=== PATIENT | male | born 1965 | race Caucasian/White ===

== ENCOUNTER → 2016-11-08 | Outpatient (CLI) | payer BC ==
[2016-11-08 19:24] LABS: ALBUMIN 3.8 GM/DL (3.2-5.2); ALBUMIN/GLOBULIN RATIO 1.23 (1.00-1.93); ALKALINE PHOSPHATASE 42 U/L (45-117); ALT/SGPT 49 U/L (12-78); ANION GAP 8 MEQ/L (8-16); AST/SGOT 17 U/L (15-37); BILIRUBIN,TOTAL 0.8 MG/DL (0.2-1.0); BLOOD UREA NITROGEN 19 MG/DL (7-18); CALCIUM LEVEL 8.4 MG/DL (8.5-10.1); CARBON DIOXIDE LEVEL 28 MEQ/L (21-32); CHLORIDE LEVEL 105 MEQ/L (98-107); CHOLESTEROL LEVEL 179 MG/DL (<200); GLOMERULAR FILTRATION RATE > 60.0 (>60); GLUCOSE, FASTING 110 MG/DL (70-105); POTASSIUM SERUM 4.5 MEQ/L (3.5-5.1); SODIUM LEVEL 141 MEQ/L (136-145); TOTAL PROTEIN 6.9 GM/DL (6.4-8.2); TRIGLYCERIDES LEVEL 195 MG/DL (<150)
[2016-11-08 19:33] LABS: MEAN CORPUSCULAR HEMOGLOBIN 31.4 pg (27.0-33.0); MEAN CORPUSCULAR HGB CONC 33.3 g/dl (32.0-36.5); MEAN CORPUSCULAR VOLUME 94.2 fl (80.0-96.0); RED CELL DISTRIBUTION WIDTH 13.5 % (11.5-14.5); WHITE BLOOD COUNT 4.6 K/mm3 (4.0-10.0)
== END ==
LOC: M WUC 14:29
PROVIDERS: ATTEND Nurse Practitioner Family
DX: K21.9 Gastro-esophageal reflux disease without esophagitis (principal); E78.5 Hyperlipidemia, unspecified

== ENCOUNTER 2016-11-18 18:10 | Emergency (ER) | payer OTHER, BC ==
[2016-11-18] MEDS ORDERED: PERCOCET 5MG/325MG TAB As Ordered ONE (19:16)
[2016-11-18] MEDS ORDERED: OXYCODONE/APAP 5MG/325MG(BULK) 1 TAB TAB As Ordered ONE (19:51)
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
--- NOTE | 2016-11-19 10:25 | REP ---
Clinical: Trauma. Technique: Axial noncontrast images from the thoracic inlet to the upper abdomen with coronal and sagittal re-formations. Findings: The bilateral lung coelho are well-aerated, symmetric, and clear. No pulmonary parenchymal consolidation/contusion, nodule or mass lesion is appreciated. No pleural effusion or pneumothorax. Tracheobronchial tree is patent. Mediastinum demonstrates normal heart/pericardium, thoracic aorta and pulmonary vasculature. No pericardial effusion identified. No obvious adenopathy. Surrounding musculoskeletal structures appear intact without evidence for acute trauma/injury. Limited evaluation of the upper abdomen demonstrates normal bilateral adrenal glands. Impression: Normal noncontrast chest CT. No evidence for acute trauma. No evidence for acute mediastinal or pleuroparenchymal process. Signed by Erickson Schmidt MD 11/19/2016 10:16 A
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
== END 2016-11-18 19:59 | disposition home or self-care (01) ==
LOC: M ED 18:10
DX: S00.81XA Abrasion of other part of head, initial encounter (principal); S20.219A Contusion of unspecified front wall of thorax, initial encounter; V43.52XA Car driver injured in collision with other type car in traffic accident, initial encounter; Y92.410 Unspecified street and highway as the place of occurrence of the external cause; F41.9 Anxiety disorder, unspecified; F32.9 Major depressive disorder, single episode, unspecified; E78.00 Pure hypercholesterolemia, unspecified; Z79.899 Other long term (current) drug therapy; Z88.5 Allergy status to narcotic agent

== ENCOUNTER → 2017-02-07 | Outpatient (CLI) | payer BC ==
[2017-02-07 12:09] LABS: MEAN CORPUSCULAR HEMOGLOBIN 31.6 pg (27.0-33.0); MEAN CORPUSCULAR HGB CONC 33.2 g/dl (32.0-36.5); MEAN CORPUSCULAR VOLUME 95.2 fl (80.0-96.0); RED CELL DISTRIBUTION WIDTH 12.8 % (11.5-14.5)
[2017-02-07 13:01] LABS: ALBUMIN 3.8 GM/DL (3.2-5.2); ALBUMIN/GLOBULIN RATIO 1.27 (1.00-1.93); ALKALINE PHOSPHATASE 45 U/L (45-117); ALT/SGPT 48 U/L (12-78); ANION GAP 7 MEQ/L (8-16); AST/SGOT 21 U/L (15-37); BILIRUBIN,TOTAL 0.8 MG/DL (0.2-1.0); BLOOD UREA NITROGEN 16 MG/DL (7-18); CALCIUM LEVEL 8.9 MG/DL (8.5-10.1); CARBON DIOXIDE LEVEL 29 MEQ/L (21-32); CHLORIDE LEVEL 103 MEQ/L (98-107); CHOLESTEROL LEVEL 176 MG/DL (<200); CREATININE FOR GFR 0.91 MG/DL (0.70-1.30); GLOMERULAR FILTRATION RATE > 60.0 (>60); GLUCOSE, FASTING 114 MG/DL (70-105); POTASSIUM SERUM 4.2 MEQ/L (3.5-5.1); SODIUM LEVEL 139 MEQ/L (136-145); TOTAL PROTEIN 6.8 GM/DL (6.4-8.2); TRIGLYCERIDES LEVEL 184 MG/DL (<150)
== END ==
LOC: M WUC 10:36
PROVIDERS: ATTEND Nurse Practitioner Family
DX: E78.00 Pure hypercholesterolemia, unspecified (principal); K21.9 Gastro-esophageal reflux disease without esophagitis

== ENCOUNTER → 2017-05-26 | Outpatient (CLI) | payer BC ==
[~2017-05-26] MED LIST: ALPR0.25 PO; ASPI1TAB PO; ATOR80TA59 PO; FISH1000 PO; IBUP-1022 PO; NIACCAP PO; NORT10CA2 PO; OMEP40CA2 PO; PROBCAP4 PO
== END ==
LOC: M LAB 16:24
PROVIDERS: ATTEND Internal Medicine Gastroenterology
DX: R19.7 Diarrhea, unspecified (principal); K52.89 Other specified noninfective gastroenteritis and colitis

== ENCOUNTER → 2017-06-01 | Outpatient (CLI) | payer BC | LOC: M WUC 08:21 | PROVIDERS: ATTEND Nurse Practitioner Family | DX: R73.9 Hyperglycemia, unspecified (principal) ==

== ENCOUNTER 2017-06-21 11:58 | Outpatient (CLI) | payer BC ==
[~2017-06-21] VITALS: Ht 175.3 cm; Wt 89.8 kg
[2017-06-21] MEDS ORDERED: NS 1,000 ML IV ONE (12:00)
[2017-06-21] MEDS ORDERED: PROPOFOL 200 MG/20 ML VIAL As Ordered ONE ×2 (12:29→14:57)
[2017-06-21] MEDS ORDERED: LIDOCAINE 2% INJ 100 MG/5 ML SDV (FOR ANES.) As Ordered ONE (12:29)
--- NOTE | 2017-06-21 15:10 | ROOR ---
Patient Name: Herbert Baez Procedure Date: 06/21/2017 2:26 PM Date of : 1965 Age: 51 Room: [facility] Gender: Male Note Status: Finalized Procedure: Upper GI endoscopy Indications: Functional Dyspepsia, Suspected esophageal reflux Providers: Pro Crane MD Referring MD: CHAS ELLIS MD Requesting Provider: Medicines: Monitored Anesthesia Care Complications: No immediate complications. Procedure: Pre-Anesthesia Assessment: - Prior to the procedure, a History and Physical was performed, and patient medications and allergies were reviewed. The patient is competent. The risks and benefits of the procedure and the sedation options and risks were discussed with the patient. All questions were answered and informed consent was obtained. Patient identification and proposed procedure were verified by the physician, the nurse and the service station attendant in the procedure room. Mental Status Examination: normal. Airway Examination: normal oropharyngeal airway and neck mobility. Respiratory Examination: clear to auscultation. CV Examination: normal. Prophylactic Antibiotics: The patient does not require prophylactic antibiotics. Prior Anticoagulants: The patient has taken no previous anticoagulant or antiplatelet agents. ASA Grade Assessment: II - A patient with mild systemic disease. After reviewing the risks and benefits, the patient was deemed in satisfactory condition to undergo the procedure. The anesthesia plan was to use moderate sedation / analgesia (conscious sedation). Immediately prior to administration of medications, the patient was re-assessed for adequacy to receive sedatives. The heart rate, respiratory rate, oxygen saturations, blood pressure, adequacy of pulmonary ventilation, and response to care were monitored throughout the procedure. The physical status of the patient was re-assessed after the procedure. The Endoscope was introduced through the mouth, and advanced to the second part of duodenum. The upper GI endoscopy was accomplished without difficulty. The patient tolerated the procedure well. Findings: One tongue of salmon-colored mucosa was present from 35 to 36 cm. No other visible abnormalities were present. The maximum longitudinal extent of these esophageal mucosal changes was 1 cm in length. Biopsies were taken with a cold forceps for histology. Verification of patient identification for the specimen was done by the physician and nurse using the patient's name, date and medical record number. Estimated blood loss was minimal. The Z-line was irregular and was found 36 cm from the incisors. Patchy minimal inflammation characterized by erythema and granularity was found in the gastric antrum. Biopsies were taken with a cold forceps for Helicobacter pylori testing. The duodenal bulb and second portion of the duodenum were normal. Biopsies for histology were taken with a cold forceps for evaluation of celiac disease. Impression: - [place]-colored mucosa suspicious for short-segment Moore's esophagus. Biopsied. - Z-line irregular, 36 cm from the incisors. - Gastritis. Biopsied. - Normal duodenal bulb and second portion of the duodenum. Biopsied. Recommendation: - Patient has a contact number available for emergencies. The signs and symptoms of potential delayed complications were discussed with the patient. Return to normal activities tomorrow. Written discharge instructions were provided to the patient. - Resume previous diet. - Continue present medications. - Await pathology results. - Telephone GI clinic for pathology results in 1 week. - Follow an antireflux regimen. - Use a proton pump inhibitor PO daily for 3 months. - Repeat upper endoscopy in 1 year for surveillance based on pathology results. Pro Crane MD Pro Crane MD 06/21/2017 3:10:14 PM This report has been signed electronically. Number of Addenda: 0 Note Initiated On: 06/21/2017 2:26 PM Estimated Blood Loss: Estimated blood loss was minimal.
[2017-06-21 15:23] VITALS: BP 132/76
--- NOTE | 2017-06-21 15:31 | ROOR ---
Patient Name: Herbert Baez Procedure Date: 06/21/2017 2:27 PM Date of : 1965 Age: 51 Room: [facility] Gender: Male Note Status: Finalized Procedure: Colonoscopy Indications: Clinically significant diarrhea of unexplained origin, Abnormal CT of the GI tract Providers: Pro Crane MD Referring MD: CHAS ELLIS MD Requesting Provider: Medicines: Monitored Anesthesia Care Complications: No immediate complications. Procedure: Pre-Anesthesia Assessment: - Prior to the procedure, a History and Physical was performed, and patient medications and allergies were reviewed. The patient is competent. The risks and benefits of the procedure and the sedation options and risks were discussed with the patient. All questions were answered and informed consent was obtained. Patient identification and proposed procedure were verified by the physician, the nurse and the tool design engineer in the procedure room. Mental Status Examination: alert and oriented. Airway Examination: normal oropharyngeal airway and neck mobility. Respiratory Examination: clear to auscultation. CV Examination: normal. Prophylactic Antibiotics: The patient does not require prophylactic antibiotics. Prior Anticoagulants: The patient has taken no previous anticoagulant or antiplatelet agents. ASA Grade Assessment: II - A patient with mild systemic disease. After reviewing the risks and benefits, the patient was deemed in satisfactory condition to undergo the procedure. The anesthesia plan was to use monitored anesthesia care (MAC). Immediately prior to administration of medications, the patient was re-assessed for adequacy to receive sedatives. The heart rate, respiratory rate, oxygen saturations, blood pressure, adequacy of pulmonary ventilation, and response to care were monitored throughout the procedure. The physical status of the patient was re-assessed after the procedure. The Colonoscope was introduced through the anus and advanced to the terminal ileum, with identification of the appendiceal orifice and IC valve. The colonoscopy was performed without difficulty. The patient tolerated the procedure well. The quality of the bowel preparation was good. The ileocecal valve, appendiceal orifice, and rectum were photographed. Scope insertion time was 1 minute. Scope withdrawal time was 8 minutes. The total duration of the procedure was 10 minutes. Findings: The perianal and digital rectal examinations were normal. The terminal ileum appeared normal. A 10 mm polyp was found in the sigmoid colon. The polyp was sessile. The polyp was removed with a hot snare. Resection and retrieval were complete. Verification of patient identification for the specimen was done by the physician and nurse using the patient's name, date and medical record number. Estimated blood loss was minimal. Non-bleeding external and internal hemorrhoids were found during retroflexion. The hemorrhoids were medium-sized. Normal mucosa was found in the entire colon. Biopsies for histology were taken with a cold forceps from the ascending colon, transverse colon, descending colon, sigmoid colon and rectum for evaluation of microscopic colitis. Impression: - The examined portion of the ileum was normal. - One 10 mm polyp in the sigmoid colon, removed with a hot snare. Resected and retrieved. - Non-bleeding external and internal hemorrhoids. - Normal mucosa in the entire examined colon. Biopsied. Recommendation: - Patient has a contact number available for emergencies. The signs and symptoms of potential delayed complications were discussed with the patient. Return to normal activities tomorrow. Written discharge instructions were provided to the patient. - Resume previous diet. - Continue present medications. - Await pathology results. - Repeat colonoscopy in 3 - 5 years for surveillance based on pathology results. - Telephone GI clinic for pathology results in 1 week. - Preparation H ointment: Apply externally daily for 7 days. Pro Crane MD Pro Crane MD 06/21/2017 3:30:47 PM This report has been signed electronically. Number of Addenda: 0 Note Initiated On: 06/21/2017 2:27 PM Estimated Blood Loss: Estimated blood loss: none.
== END 2017-06-21 15:53 | disposition home or self-care (01) ==
LOC: M OPP 11:58
PROVIDERS: ATTEND Internal Medicine Gastroenterology
DX: R93.3 Abnormal findings on diagnostic imaging of other parts of digestive tract (principal); R19.7 Diarrhea, unspecified; D12.5 Benign neoplasm of sigmoid colon; K64.8 Other hemorrhoids; K64.4 Residual hemorrhoidal skin tags; K30 Functional dyspepsia; K22.8 Other specified diseases of esophagus; K29.70 Gastritis, unspecified, without bleeding; E78.5 Hyperlipidemia, unspecified; K52.9 Noninfective gastroenteritis and colitis, unspecified; K57.92 Diverticulitis of intestine, part unspecified, without perforation or abscess without bleeding; R10.9 Unspecified abdominal pain; F41.9 Anxiety disorder, unspecified; R51 Headache; Z79.82 Long term (current) use of aspirin; Z79.899 Other long term (current) drug therapy

== ENCOUNTER → 2017-07-15 | Outpatient (CLI) | payer BC | LOC: M WUC 08:19 | PROVIDERS: ATTEND Nurse Practitioner Family | DX: R73.9 Hyperglycemia, unspecified (principal) ==

== ENCOUNTER → 2017-08-09 | Outpatient (CLI) | payer BC ==
[2017-08-09 13:04] LABS: MEAN CORPUSCULAR HEMOGLOBIN 30.8 pg (27.0-33.0); MEAN CORPUSCULAR HGB CONC 32.2 g/dl (32.0-36.5); MEAN CORPUSCULAR VOLUME 95.6 fl (80.0-96.0); RED CELL DISTRIBUTION WIDTH 13.1 % (11.5-14.5)
[2017-08-09 15:23] LABS: ALBUMIN 3.6 GM/DL (3.2-5.2); ALKALINE PHOSPHATASE 36 U/L (45-117); ALT/SGPT 36 U/L (12-78); ANION GAP 6 MEQ/L (8-16); AST/SGOT 18 U/L (15-37); BILIRUBIN,TOTAL 0.9 MG/DL (0.2-1.0); BLOOD UREA NITROGEN 15 MG/DL (7-18); CALCIUM LEVEL 8.4 MG/DL (8.5-10.1); CARBON DIOXIDE LEVEL 29 MEQ/L (21-32); CHLORIDE LEVEL 107 MEQ/L (98-107); CHOLESTEROL LEVEL 126 MG/DL (<200); CREATININE FOR GFR 0.82 MG/DL (0.70-1.30); GLOMERULAR FILTRATION RATE > 60.0 (>60); GLUCOSE, FASTING 87 MG/DL (70-105); POTASSIUM SERUM 4.1 MEQ/L (3.5-5.1); SODIUM LEVEL 142 MEQ/L (136-145); TOTAL PROTEIN 6.6 GM/DL (6.4-8.2); TRIGLYCERIDES LEVEL 83 MG/DL (<150)
== END ==
LOC: M WUC 11:03
PROVIDERS: ATTEND Nurse Practitioner Family
DX: I10 Essential (primary) hypertension (principal)

== ENCOUNTER → 2017-08-30 | Outpatient (CLI) | payer BC | LOC: M WUC 11:06 | PROVIDERS: ATTEND Nurse Practitioner Family | DX: R73.9 Hyperglycemia, unspecified (principal) ==

== ENCOUNTER → 2017-10-11 | Outpatient (CLI) | payer BC ==
[2017-10-11 14:22] LABS: BASO % 0.3 % (0.0-1.0); EOS # 0.1 10^3/uL (0.0-0.50); EOS % 1.8 % (0.0-3.0); IMMATURE GRANULOCYTE % 0.3 % (0-0); LYMPH # 1.3 10^3/uL (1.5-4.5); LYMPH % 40.1 % (24.0-44.0); MEAN CORPUSCULAR HGB CONC 32.5 g/dl (32.0-36.5); MEAN CORPUSCULAR VOLUME 95.2 fl (80.0-96.0); MONO # 0.3 10^3/uL (0.0-0.8); MONO % 8.5 % (0.0-5.0); NEUTROPHILS # 1.6 10^3/uL (1.8-7.7); PLATELET COUNT, AUTOMATED 187 10^3/uL (150-450); RED CELL DISTRIBUTION WIDTH 12.6 % (11.5-14.5); WHITE BLOOD COUNT 3.3 10^3/uL (4.0-10.0)
[2017-10-11 14:51] LABS: ALBUMIN/GLOBULIN RATIO 1.38 (1.00-1.93); BILIRUBIN,DIRECT 0.3 MG/DL (0.0-0.2); BILIRUBIN,TOTAL 1.6 MG/DL (0.2-1.0); TOTAL PROTEIN 6.9 GM/DL (6.4-8.2)
[2017-10-11 15:24] LABS: ERYTHROCYTE SEDIMENTATION RATE 8 mm/hr (0-15)
== END ==
LOC: M WUC 11:29
PROVIDERS: ATTEND Internal Medicine Gastroenterology
DX: R10.30 Lower abdominal pain, unspecified (principal)

== ENCOUNTER → 2017-10-24 | Outpatient (CLI) | payer BC ==
--- NOTE | 2017-10-25 04:14 | REP ---
Clinical: Abnormal weight loss and abnormal liver function tests. Technique: Duke scale ultrasound using curved array transducer. Findings: The liver and pancreas are normal in contour, size, and echogenicity without focal hepatic or pancreatic lesions identified. The patient is status post cholecystectomy. No biliary ductal dilatation is appreciated, and the common bile duct measures 4.2 mm diameter. The right kidney is normal in reniform shape without hydronephrosis and measures 11.1 x 5.7 x 4.7 cm. No ascites. Visualized portions of the abdominal aorta normal. Impression: Evidence of prior cholecystectomy. Otherwise normal right upper quadrant ultrasound. Signed by Erickson Schmidt MD 10/25/2017 01:05 A
== END ==
LOC: M RAD 09:20
PROVIDERS: ATTEND Internal Medicine Gastroenterology
DX: K30 Functional dyspepsia (principal); R63.4 Abnormal weight loss; R94.5 Abnormal results of liver function studies; Z90.49 Acquired absence of other specified parts of digestive tract

== ENCOUNTER → 2017-11-18 | Outpatient (CLI) | payer BC ==
[~2017-11-18] MED LIST changes: -ALPR0.25 PO; -ASPI1TAB PO; -ATOR80TA59 PO; -FISH1000 PO; +GLUCAGON FOR INJ 1 MG VIAL (J1610) As Ordered; -IBUP-1022 PO; +ISOVUE-370 76% 100ML VIAL (Q9967) As Ordered; -NIACCAP PO; -NORT10CA2 PO; -OMEP40CA2 PO; -PROBCAP4 PO; +VoLumen 0.1% SUSPENSION 450ML BOTTLE As Ordered
== END ==
LOC: M RAD 09:00
DX: R63.4 Abnormal weight loss (principal); N28.1 Cyst of kidney, acquired; N42.0 Calculus of prostate
CPT/HCPCS: Q9967

== ENCOUNTER → 2017-11-22 | Outpatient (CLI) | payer BC ==
[2017-11-22 13:42] LABS: HEMATOCRIT 41.1 % (42.0-52.0); HEMOGLOBIN 13.5 g/dl (14.0-18.0); MEAN CORPUSCULAR HEMOGLOBIN 31.5 pg (27.0-33.0); MEAN CORPUSCULAR HGB CONC 32.8 g/dl (32.0-36.5); PLATELET COUNT, AUTOMATED 199 10^3/uL (150-450); RED BLOOD COUNT 4.28 10^6/uL (4.30-6.10); RED CELL DISTRIBUTION WIDTH 12.9 % (11.5-14.5); WHITE BLOOD COUNT 4.4 10^3/uL (4.0-10.0)
[2017-11-22 13:57] LABS: ALBUMIN 3.6 GM/DL (3.2-5.2); ALBUMIN/GLOBULIN RATIO 1.16 (1.00-1.93); ALKALINE PHOSPHATASE 40 U/L (45-117); ALT/SGPT 41 U/L (12-78); ANION GAP 6 MEQ/L (8-16); AST/SGOT 16 U/L (7-37); BILIRUBIN,TOTAL 1.4 MG/DL (0.2-1.0); BLOOD UREA NITROGEN 15 MG/DL (7-18); CALCIUM LEVEL 8.9 MG/DL (8.5-10.1); CARBON DIOXIDE LEVEL 32 MEQ/L (21-32); CHLORIDE LEVEL 106 MEQ/L (98-107); CHOLESTEROL LEVEL 133 MG/DL (<200); CPK CREATINE PHOSPHOKINASE 105 U/L (39-308); CREATININE FOR GFR 0.82 MG/DL (0.70-1.30); GLOMERULAR FILTRATION RATE > 60.0 (>60); GLUCOSE, FASTING 98 MG/DL (70-105); HDL CHOLESTEROL 50 MG/DL (>40); NON-HDL-C 83 MG/DL; POTASSIUM SERUM 3.9 MEQ/L (3.5-5.1); SODIUM LEVEL 144 MEQ/L (136-145); TOTAL PROTEIN 6.7 GM/DL (6.4-8.2); TRIGLYCERIDES LEVEL 105 MG/DL (<150)
[2017-11-22 14:30] LABS: ESTIMATED AVERAGE GLUCOSE 126 MG/DL (60-110)
== END ==
LOC: M WUC 10:35
DX: E78.00 Pure hypercholesterolemia, unspecified (principal); R73.9 Hyperglycemia, unspecified; I10 Essential (primary) hypertension
CPT/HCPCS: 82550

== ENCOUNTER → 2018-02-21 | Outpatient (CLI) | payer BC ==
[2018-02-21 19:53] LABS: HEMOGLOBIN 15.1 g/dl (13.5-17.5); MEAN CORPUSCULAR HGB CONC 32.8 g/dl (32.0-36.5); MEAN CORPUSCULAR VOLUME 91.3 fl (80.0-96.0); PLATELET COUNT, AUTOMATED 198 10^3/uL (150-450); RED BLOOD COUNT 5.04 10^6/uL (4.30-6.10); RED CELL DISTRIBUTION WIDTH 12.1 % (11.5-14.5); WHITE BLOOD COUNT 3.4 10^3/uL (4.0-10.0)
[2018-02-21 20:10] LABS: ALBUMIN 3.7 GM/DL (3.2-5.2); ALBUMIN/GLOBULIN RATIO 1.09 (1.00-1.93); ALKALINE PHOSPHATASE 66 U/L (45-117); ALT/SGPT 48 U/L (12-78); ANION GAP 4 MEQ/L (8-16); AST/SGOT 17 U/L (7-37); BILIRUBIN,TOTAL 0.6 MG/DL (0.2-1.0); BLOOD UREA NITROGEN 13 MG/DL (7-18); CARBON DIOXIDE LEVEL 30 MEQ/L (21-32); CHLORIDE LEVEL 108 MEQ/L (98-107); CHOLESTEROL LEVEL 139 MG/DL (<200); CHOLESTEROL RISK RATIO 2.574 (<5); CPK CREATINE PHOSPHOKINASE 95 U/L (39-308); CREATININE FOR GFR 0.79 MG/DL (0.70-1.30); GLOMERULAR FILTRATION RATE > 60.0 (>56); GLUCOSE, FASTING 104 MG/DL (70-100); HDL CHOLESTEROL 54 MG/DL (>40); LDL CHOLESTEROL 72.6 MG/DL (<100); NON-HDL-C 85 MG/DL; POTASSIUM SERUM 4.2 MEQ/L (3.5-5.1); SODIUM LEVEL 142 MEQ/L (136-145); TOTAL PROTEIN 7.1 GM/DL (6.4-8.2); TRIGLYCERIDES LEVEL 62 MG/DL (<150)
== END ==
LOC: M WUC 17:18
DX: I10 Essential (primary) hypertension (principal); E78.00 Pure hypercholesterolemia, unspecified
CPT/HCPCS: 82550

== ENCOUNTER → 2018-03-30 | Outpatient (CLI) | payer BC ==
[2018-03-30 09:58] LABS: APPEARANCE, URINE CLEAR (CLEAR); BACTERIA, URINE AUTO NEGATIVE (NEGATIVE); BILIRUBIN, URINE AUTO NEGATIVE (NEGATIVE); BLOOD, URINE BLOOD 1+ (NEGATIVE); COLOR, URINE YELLOW (YELLOW); GLUCOSE, URINE (UA) AUTO NEGATIVE (NEGATIVE); KETONE, URINE AUTO NEGATIVE (NEGATIVE); LEUKOCYTE ESTERASE, URINE AUTO NEGATIVE (NEGATIVE); MUCUS, URINE SMALL (NEGATIVE); NITRITE, URINE AUTO NEGATIVE (NEGATIVE); PROTEIN, URINE AUTO NEGATIVE (NEGATIVE); RBC, URINE AUTO 0 /HPF (0-3); SPECIFIC GRAVITY URINE AUTO 1.014 (1.002-1.035); SQUAMOUS EPITHELIAL CELL UR AU 0 /HPF (0-6); UROBILINOGEN, URINE AUTO 0.2 mg/dL (0.0-2.0); WBC, URINE AUTO 0 /HPF (0-3)
[2018-03-30 12:51] LABS: PSA SCREENING 1.21 NG/ML (< 4.0)
== END ==
LOC: M WUC 09:10
DX: Z12.5 Encounter for screening for malignant neoplasm of prostate (principal)

== ENCOUNTER → 2018-05-26 | Outpatient (CLI) | payer BC ==
[2018-05-26 16:46] LABS: HEMATOCRIT 46.4 % (42.0-52.0); HEMOGLOBIN 15.4 g/dl (13.5-17.5); MEAN CORPUSCULAR HEMOGLOBIN 30.4 pg (27.0-33.0); MEAN CORPUSCULAR HGB CONC 33.2 g/dl (32.0-36.5); MEAN CORPUSCULAR VOLUME 91.5 fl (80.0-96.0); PLATELET COUNT, AUTOMATED 228 10^3/uL (150-450); RED BLOOD COUNT 5.07 10^6/uL (4.30-6.10); RED CELL DISTRIBUTION WIDTH 13.1 % (11.5-14.5); WHITE BLOOD COUNT 4.7 10^3/uL (4.0-10.0)
[2018-05-26 16:48] LABS: ESTIMATED AVERAGE GLUCOSE 134 MG/DL (60-110); HEMOGLOBIN A1c 6.3 %
[2018-05-26 16:57] LABS: ALBUMIN 4.1 GM/DL (3.2-5.2); ALBUMIN/GLOBULIN RATIO 1.11 (1.00-1.93); ALKALINE PHOSPHATASE 75 U/L (45-117); ALT/SGPT 54 U/L (12-78); ANION GAP 7 MEQ/L (8-16); AST/SGOT 27 U/L (7-37); BLOOD UREA NITROGEN 14 MG/DL (7-18); CARBON DIOXIDE LEVEL 30 MEQ/L (21-32); CHLORIDE LEVEL 105 MEQ/L (98-107); CHOLESTEROL LEVEL 176 MG/DL (<200); CHOLESTEROL RISK RATIO 2.838 (<5); CPK CREATINE PHOSPHOKINASE 175 U/L (39-308); CREATININE FOR GFR 0.96 MG/DL (0.70-1.30); GLOMERULAR FILTRATION RATE > 60.0 (>56); GLUCOSE, FASTING 101 MG/DL (70-100); HDL CHOLESTEROL 62 MG/DL (>40); LDL CHOLESTEROL 97.6 MG/DL (<100); NON-HDL-C 114 MG/DL; POTASSIUM SERUM 4.2 MEQ/L (3.5-5.1); SODIUM LEVEL 142 MEQ/L (136-145); TOTAL PROTEIN 7.8 GM/DL (6.4-8.2); TRIGLYCERIDES LEVEL 82 MG/DL (<150)
[2018-05-26 17:06] LABS: MAU/CREAT RATIO 5.2 MCG/MG (0.0-30.0)
== END ==
LOC: M WUC 15:13
DX: K21.9 Gastro-esophageal reflux disease without esophagitis (principal)
CPT/HCPCS: 82550

== ENCOUNTER 2018-07-07 07:47 | Day surgery (SDC) | payer BC ==
[~2018-07-07 07:47] MED LIST changes: -GLUCAGON FOR INJ 1 MG VIAL (J1610) As Ordered; -ISOVUE-370 76% 100ML VIAL (Q9967) As Ordered; +LIDOCAINE 2% INJ 100 MG/5 ML SDV (FOR ANES.) As Ordered; +PROPOFOL 200 MG/20 ML VIAL As Ordered; -VoLumen 0.1% SUSPENSION 450ML BOTTLE As Ordered
[2018-07-07] MEDS: NS 1,000 ML IV (08:00)
[2018-07-07] MEDS ORDERED: fentaNYL 100 MCG/2 ML INJECTION (J3010) As Ordered (08:15)
== END 2018-07-07 09:22 | disposition home or self-care (01) ==
LOC: M OPP 09:22
DX: K22.70 Barrett's esophagus without dysplasia (principal); K22.8 Other specified diseases of esophagus; K44.9 Diaphragmatic hernia without obstruction or gangrene; K29.70 Gastritis, unspecified, without bleeding; K31.89 Other diseases of stomach and duodenum; E78.5 Hyperlipidemia, unspecified; K52.9 Noninfective gastroenteritis and colitis, unspecified; K57.32 Diverticulitis of large intestine without perforation or abscess without bleeding; K58.9 Irritable bowel syndrome, unspecified; K21.9 Gastro-esophageal reflux disease without esophagitis; R12 Heartburn; F41.9 Anxiety disorder, unspecified; R51 Headache; R06.83 Snoring; N32.81 Overactive bladder; Z79.82 Long term (current) use of aspirin; Z79.899 Other long term (current) drug therapy
CPT/HCPCS: 43239

== ENCOUNTER → 2018-08-30 | Outpatient (CLI) | payer BC ==
[2018-08-30 13:50] LABS: HEMATOCRIT 46.6 % (42.0-52.0); HEMOGLOBIN 15.2 g/dl (13.5-17.5); MEAN CORPUSCULAR HEMOGLOBIN 31.1 pg (27.0-33.0); MEAN CORPUSCULAR HGB CONC 32.6 g/dl (32.0-36.5); MEAN CORPUSCULAR VOLUME 95.3 fl (80.0-96.0); PLATELET COUNT, AUTOMATED 197 10^3/uL (150-450); RED BLOOD COUNT 4.89 10^6/uL (4.30-6.10); RED CELL DISTRIBUTION WIDTH 12.5 % (11.5-14.5); WHITE BLOOD COUNT 5.6 10^3/uL (4.0-10.0)
[2018-08-30 22:07] LABS: ALBUMIN 4.1 GM/DL (3.2-5.2); ALBUMIN/GLOBULIN RATIO 1.28 (1.00-1.93); ALKALINE PHOSPHATASE 60 U/L (45-117); ALT/SGPT 45 U/L (12-78); ANION GAP 9 MEQ/L (8-16); AST/SGOT 27 U/L (7-37); BILIRUBIN,TOTAL 1.1 MG/DL (0.2-1.0); BLOOD UREA NITROGEN 20 MG/DL (7-18); CALCIUM LEVEL 8.9 MG/DL (8.5-10.1); CARBON DIOXIDE LEVEL 26 MEQ/L (21-32); CHLORIDE LEVEL 106 MEQ/L (98-107); CHOLESTEROL LEVEL 164 MG/DL (<200); CHOLESTEROL RISK RATIO 3.346 (<5); CPK CREATINE PHOSPHOKINASE 229 U/L (39-308); CREATININE FOR GFR 0.92 MG/DL (0.70-1.30); GLOMERULAR FILTRATION RATE > 60.0 (>56); GLUCOSE, FASTING 105 MG/DL (70-100); HDL CHOLESTEROL 49 MG/DL (>40); LDL CHOLESTEROL 94 MG/DL (<100); NON-HDL-C 115 MG/DL; POTASSIUM SERUM 4.5 MEQ/L (3.5-5.1); SODIUM LEVEL 141 MEQ/L (136-145); TOTAL PROTEIN 7.3 GM/DL (6.4-8.2); TRIGLYCERIDES LEVEL 104 MG/DL (<150)
== END ==
LOC: M WUC 08:40
DX: I10 Essential (primary) hypertension (principal); E78.00 Pure hypercholesterolemia, unspecified
CPT/HCPCS: 82550

== ENCOUNTER → 2018-12-09 | Outpatient (CLI) | payer BC ==
[~2018-12-09] MED LIST changes: +ALPR0.25 PO; +ASPI1TAB PO; +ATOR80TA59 PO; +FISH1000 PO; +FISH7.5C PO; +IBUP-1022 PO; -LIDOCAINE 2% INJ 100 MG/5 ML SDV (FOR ANES.) As Ordered; +NIAC500T64 PO; +NIACCAP PO; +NORT10CA2 PO; +OMEP40CA2 PO; +OXYB10TA PO; +PROBCAP4 PO; -PROPOFOL 200 MG/20 ML VIAL As Ordered; +XANA0.25 PO
[2018-12-09 17:50] LABS: ALBUMIN 4.3 GM/DL (3.2-5.2); ALT/SGPT 48 U/L (12-78); BILIRUBIN,TOTAL 2.1 MG/DL (0.2-1.0); BLOOD UREA NITROGEN 17 MG/DL (7-18); CALCIUM LEVEL 9.1 MG/DL (8.5-10.1); CARBON DIOXIDE LEVEL 27 MEQ/L (21-32); CHLORIDE LEVEL 104 MEQ/L (98-107); CHOLESTEROL LEVEL 159 MG/DL (<200); CPK CREATINE PHOSPHOKINASE 274 U/L (39-308); CREATININE FOR GFR 0.98 MG/DL (0.70-1.30); GLOMERULAR FILTRATION RATE > 60.0 (>56); GLUCOSE, FASTING 98 MG/DL (70-100); HDL CHOLESTEROL 60 MG/DL (>40); LDL CHOLESTEROL 88 MG/DL (<100); NON-HDL-C 99 MG/DL; POTASSIUM SERUM 4.5 MEQ/L (3.5-5.1); SODIUM LEVEL 140 MEQ/L (136-145); TOTAL PROTEIN 7.5 GM/DL (6.4-8.2); TRIGLYCERIDES LEVEL 54 MG/DL (<150)
[2018-12-09 17:54] LABS: HEMATOCRIT 47.4 % (42.0-52.0); HEMOGLOBIN 15.5 g/dl (13.5-17.5); MEAN CORPUSCULAR HEMOGLOBIN 31.3 pg (27.0-33.0); MEAN CORPUSCULAR HGB CONC 32.7 g/dl (32.0-36.5); MEAN CORPUSCULAR VOLUME 95.6 fl (80.0-96.0); PLATELET COUNT, AUTOMATED 188 10^3/uL (150-450); RED BLOOD COUNT 4.96 10^6/uL (4.30-6.10); WHITE BLOOD COUNT 3.5 10^3/uL (4.0-10.0)
== END ==
LOC: M WUC 12:36
PROVIDERS: ATTEND Nurse Practitioner Family
DX: I10 Essential (primary) hypertension (principal); E78.00 Pure hypercholesterolemia, unspecified

== ENCOUNTER → 2019-02-27 | Outpatient (CLI) | payer BC ==
[~2019-02-27] MED LIST changes: -ASPI1TAB PO; +ASPI81TA26 PO
[2019-02-28 20:25] LABS: ALBUMIN 4.8 GM/DL (3.2-5.2); ALT/SGPT 39 U/L (12-78); BILIRUBIN,TOTAL 2.6 MG/DL (0.2-1.0); BLOOD UREA NITROGEN 27 MG/DL (7-18); CALCIUM LEVEL 9.5 MG/DL (8.5-10.1); CARBON DIOXIDE LEVEL 25 MEQ/L (21-32); CHLORIDE LEVEL 103 MEQ/L (98-107); CREATININE FOR GFR 1.15 MG/DL (0.70-1.30); GLOMERULAR FILTRATION RATE > 60.0 (>56); GLUCOSE, FASTING 114 MG/DL (70-100); POTASSIUM SERUM 3.8 MEQ/L (3.5-5.1); SODIUM LEVEL 137 MEQ/L (136-145); TOTAL PROTEIN 7.9 GM/DL (6.4-8.2)
== END ==
LOC: M WUC 17:33
PROVIDERS: ATTEND Physician Assistant
DX: A08.4 Viral intestinal infection, unspecified (principal)

== ENCOUNTER → 2019-03-24 | Outpatient (CLI) | payer BC ==
[2019-03-24 13:19] LABS: HEMATOCRIT 44.9 % (42.0-52.0); HEMOGLOBIN 14.6 g/dl (13.5-17.5); MEAN CORPUSCULAR HEMOGLOBIN 31.7 pg (27.0-33.0); MEAN CORPUSCULAR HGB CONC 32.5 g/dl (32.0-36.5); MEAN CORPUSCULAR VOLUME 97.6 fl (80.0-96.0); PLATELET COUNT, AUTOMATED 189 10^3/uL (150-450); WHITE BLOOD COUNT 4.3 10^3/uL (4.0-10.0)
[2019-03-24 13:43] LABS: ALT/SGPT 42 U/L (12-78); BILIRUBIN,TOTAL 1.5 MG/DL (0.2-1.0); BLOOD UREA NITROGEN 19 MG/DL (7-18); CALCIUM LEVEL 9.1 MG/DL (8.5-10.1); CARBON DIOXIDE LEVEL 30 MEQ/L (21-32); CHLORIDE LEVEL 106 MEQ/L (98-107); CHOLESTEROL LEVEL 154 MG/DL (<200); CHOLESTEROL RISK RATIO 2.961 (<5); CPK CREATINE PHOSPHOKINASE 239 U/L (39-308); CREATININE FOR GFR 1.01 MG/DL (0.70-1.30); GLOMERULAR FILTRATION RATE > 60.0 (>56); GLUCOSE, FASTING 108 MG/DL (70-100); HDL CHOLESTEROL 52 MG/DL (>40); LDL CHOLESTEROL 88 MG/DL (<100); NON-HDL-C 102 MG/DL; POTASSIUM SERUM 4.8 MEQ/L (3.5-5.1); SODIUM LEVEL 140 MEQ/L (136-145); TOTAL PROTEIN 6.8 GM/DL (6.4-8.2); TRIGLYCERIDES LEVEL 68 MG/DL (<150)
== END ==
LOC: M WUC 10:40
PROVIDERS: ATTEND Nurse Practitioner Family
DX: I10 Essential (primary) hypertension (principal); E78.5 Hyperlipidemia, unspecified

== ENCOUNTER → 2019-06-24 | Outpatient (CLI) | payer BC ==
[~2019-06-24] MED LIST changes: -OXYB10TA PO; +OXYB10TA2 PO
[2019-06-24 18:21] LABS: HEMATOCRIT 46.7 % (42.0-52.0); HEMOGLOBIN 15.1 g/dl (13.5-17.5); MEAN CORPUSCULAR HEMOGLOBIN 31.3 pg (27.0-33.0); MEAN CORPUSCULAR HGB CONC 32.3 g/dl (32.0-36.5); MEAN CORPUSCULAR VOLUME 96.7 fl (80.0-96.0); PLATELET COUNT, AUTOMATED 201 10^3/uL (150-450); RED BLOOD COUNT 4.83 10^6/uL (4.30-6.10); WHITE BLOOD COUNT 4.8 10^3/uL (4.0-10.0)
[2019-06-24 18:27] LABS: ALBUMIN 3.9 GM/DL (3.2-5.2); ALT/SGPT 37 U/L (12-78); BILIRUBIN,TOTAL 0.8 MG/DL (0.2-1.0); BLOOD UREA NITROGEN 18 MG/DL (7-18); CALCIUM LEVEL 9.7 MG/DL (8.5-10.1); CARBON DIOXIDE LEVEL 32 MEQ/L (21-32); CHLORIDE LEVEL 104 MEQ/L (98-107); CHOLESTEROL LEVEL 165 MG/DL (<200); CHOLESTEROL RISK RATIO 3.666 (<5); CPK CREATINE PHOSPHOKINASE 122 U/L (39-308); CREATININE FOR GFR 1.03 MG/DL (0.70-1.30); GLOMERULAR FILTRATION RATE > 60.0 (>56); GLUCOSE, FASTING 110 MG/DL (70-100); HDL CHOLESTEROL 45 MG/DL (>40); LDL CHOLESTEROL 82 MG/DL (<100); NON-HDL-C 120 MG/DL; POTASSIUM SERUM 4.7 MEQ/L (3.5-5.1); SODIUM LEVEL 140 MEQ/L (136-145); TOTAL PROTEIN 7.2 GM/DL (6.4-8.2); TRIGLYCERIDES LEVEL 189 MG/DL (<150)
== END ==
LOC: M WUC 11:50
PROVIDERS: ATTEND Nurse Practitioner Family
DX: I10 Essential (primary) hypertension (principal); E78.5 Hyperlipidemia, unspecified

== ENCOUNTER → 2019-10-05 | Outpatient (CLI) | payer BC ==
[~2019-10-05] MED LIST changes: -OMEP40CA2 PO; +OMEP40CA97 PO
[2019-10-05 17:32] LABS: HEMATOCRIT 49.3 % (42.0-52.0); HEMOGLOBIN 15.7 g/dl (13.5-17.5); MEAN CORPUSCULAR HEMOGLOBIN 31.3 pg (27.0-33.0); MEAN CORPUSCULAR HGB CONC 31.8 g/dl (32.0-36.5); MEAN CORPUSCULAR VOLUME 98.2 fl (80.0-96.0); PLATELET COUNT, AUTOMATED 199 10^3/uL (150-450); RED BLOOD COUNT 5.02 10^6/uL (4.30-6.10); WHITE BLOOD COUNT 4.7 10^3/uL (4.0-10.0)
[2019-10-05 17:46] LABS: ALT/SGPT 60 U/L (12-78); BILIRUBIN,TOTAL 1.3 MG/DL (0.2-1.0); BLOOD UREA NITROGEN 17 MG/DL (7-18); CALCIUM LEVEL 9.5 MG/DL (8.5-10.1); CARBON DIOXIDE LEVEL 33 MEQ/L (21-32); CHLORIDE LEVEL 103 MEQ/L (98-107); CHOLESTEROL LEVEL 189 MG/DL (<200); CHOLESTEROL RISK RATIO 3.634 (<5); CPK CREATINE PHOSPHOKINASE 111 U/L (39-308); GLOMERULAR FILTRATION RATE > 60.0 (>56); GLUCOSE, FASTING 99 MG/DL (70-100); HDL CHOLESTEROL 52 MG/DL (>40); LDL CHOLESTEROL 121 MG/DL (<100); NON-HDL-C 137 MG/DL; POTASSIUM SERUM 4.6 MEQ/L (3.5-5.1); SODIUM LEVEL 140 MEQ/L (136-145); TOTAL PROTEIN 7.4 GM/DL (6.4-8.2); TRIGLYCERIDES LEVEL 78 MG/DL (<150)
== END ==
LOC: M WUC 11:53
PROVIDERS: ATTEND Nurse Practitioner Family
DX: I10 Essential (primary) hypertension (principal); E78.5 Hyperlipidemia, unspecified

== ENCOUNTER → 2019-11-05 | Outpatient (CLI) | payer BC | LOC: M WUC 15:30 | PROVIDERS: ATTEND Nurse Practitioner Women's Health | DX: Z12.5 Encounter for screening for malignant neoplasm of prostate (principal) | CPT/HCPCS: 36415; G0103 ==

== ENCOUNTER → 2020-01-05 | Outpatient (CLI) | payer BC ==
[~2020-01-05] MED LIST changes: -OXYB10TA2 PO; +OXYB10TA23 PO
[2020-01-05 14:30] LABS: HEMATOCRIT 47.9 % (42.0-52.0); HEMOGLOBIN 15.4 g/dl (13.5-17.5); MEAN CORPUSCULAR HEMOGLOBIN 30.9 pg (27.0-33.0); MEAN CORPUSCULAR HGB CONC 32.2 g/dl (32.0-36.5); PLATELET COUNT, AUTOMATED 219 10^3/uL (150-450); RED BLOOD COUNT 4.99 10^6/uL (4.30-6.10); WHITE BLOOD COUNT 8.4 10^3/uL (4.0-10.0)
[2020-01-05 14:43] LABS: ALBUMIN 4.3 GM/DL (3.2-5.2); ALT/SGPT 52 U/L (12-78); BILIRUBIN,TOTAL 1.5 MG/DL (0.2-1.0); BLOOD UREA NITROGEN 20 MG/DL (7-18); CALCIUM LEVEL 9.2 MG/DL (8.5-10.1); CARBON DIOXIDE LEVEL 30 MEQ/L (21-32); CHLORIDE LEVEL 105 MEQ/L (98-107); CHOLESTEROL LEVEL 210 MG/DL (<200); CPK CREATINE PHOSPHOKINASE 176 U/L (39-308); CREATININE FOR GFR 1.01 MG/DL (0.70-1.30); GLOMERULAR FILTRATION RATE > 60.0 (>56); GLUCOSE, FASTING 121 MG/DL (70-100); HDL CHOLESTEROL 58 MG/DL (>40); LDL CHOLESTEROL 139 MG/DL (<100); NON-HDL-C 152 MG/DL; POTASSIUM SERUM 4.7 MEQ/L (3.5-5.1); SODIUM LEVEL 139 MEQ/L (136-145); TOTAL PROTEIN 7.8 GM/DL (6.4-8.2); TRIGLYCERIDES LEVEL 65 MG/DL (<150)
== END ==
LOC: M WUC 10:09
PROVIDERS: ATTEND Internal Medicine Cardiovascular Disease
DX: I10 Essential (primary) hypertension (principal); E78.5 Hyperlipidemia, unspecified

== ENCOUNTER → 2020-04-03 | Outpatient (CLI) | payer BC ==
[2020-04-03 18:28] LABS: HEMOGLOBIN 15.2 g/dl (13.5-17.5); MEAN CORPUSCULAR VOLUME 96.8 fl (80.0-96.0); PLATELET COUNT, AUTOMATED 197 10^3/uL (150-450); RED BLOOD COUNT 4.75 10^6/uL (4.30-6.10); WHITE BLOOD COUNT 4.5 10^3/uL (4.0-10.0)
[2020-04-03 18:35] LABS: ALBUMIN 3.8 GM/DL (3.2-5.2); ALT/SGPT 47 U/L (12-78); BLOOD UREA NITROGEN 20 MG/DL (7-18); CALCIUM LEVEL 8.6 MG/DL (8.5-10.1); CARBON DIOXIDE LEVEL 28 MEQ/L (21-32); CHLORIDE LEVEL 107 MEQ/L (98-107); CHOLESTEROL LEVEL 190 MG/DL (<200); CHOLESTEROL RISK RATIO 4.523 (<5); CPK CREATINE PHOSPHOKINASE 139 U/L (39-308); CREATININE FOR GFR 0.97 MG/DL (0.70-1.30); GLOMERULAR FILTRATION RATE > 60.0 (>56); GLUCOSE, FASTING 110 MG/DL (70-100); HDL CHOLESTEROL 42 MG/DL (>40); LDL CHOLESTEROL 110 MG/DL (<100); NON-HDL-C 148 MG/DL; POTASSIUM SERUM 4.3 MEQ/L (3.5-5.1); SODIUM LEVEL 143 MEQ/L (136-145); TOTAL PROTEIN 7.1 GM/DL (6.4-8.2); TRIGLYCERIDES LEVEL 189 MG/DL (<150)
== END ==
LOC: M WUC 13:43
PROVIDERS: ATTEND Nurse Practitioner Family
DX: I10 Essential (primary) hypertension (principal); E78.5 Hyperlipidemia, unspecified

== ENCOUNTER → 2020-04-10 | Outpatient (CLI) | payer BC ==
[~2020-04-10] MED LIST changes: +ISOVUE-370 76% 100ML VIAL As Ordered ONE
--- NOTE | 2020-04-10 09:04 | REP ---
REASON: Dyspnea. COMPARISON: Standard noncontrast enhanced chest CT of 11/18/2016. CONTRAST: 100 mL of Isovue 370. There is excellent visualization of the pulmonary arterial vasculature. There are no focal filling defects present that would be considered consistent with pulmonary emboli. There is no mediastinal or hilar adenopathy. There are no pleural or pericardial effusions. The imaged upper abdomen is within normal limits. The imaged osseous structures are stable and intact. Evaluation of the lung coelho shows no change from the prior exam. There are no abnormal, masses, or opacities. IMPRESSION: CT findings are within normal limits. Electronically Signed by Larry Cornejo DO 04/10/2020 02:31 P
== END ==
LOC: M RAD 07:36
PROVIDERS: ATTEND Nurse Practitioner Family
DX: R06.02 Shortness of breath (principal)
CPT/HCPCS: 71275; Q9967

== ENCOUNTER → 2020-07-08 | Outpatient (CLI) | payer BC ==
[~2020-07-08] MED LIST changes: -ISOVUE-370 76% 100ML VIAL As Ordered ONE
[2020-07-08 13:55] LABS: HEMATOCRIT 48.6 % (42.0-52.0); HEMOGLOBIN 15.8 g/dl (13.5-17.5); MEAN CORPUSCULAR HEMOGLOBIN 31.5 pg (27.0-33.0); MEAN CORPUSCULAR HGB CONC 32.5 g/dl (32.0-36.5); PLATELET COUNT, AUTOMATED 206 10^3/uL (150-450); RED BLOOD COUNT 5.01 10^6/uL (4.30-6.10); WHITE BLOOD COUNT 4.5 10^3/uL (4.0-10.0)
[2020-07-08 13:59] LABS: ALT/SGPT 52 U/L (12-78); BILIRUBIN,TOTAL 0.9 MG/DL (0.2-1.0); BLOOD UREA NITROGEN 15 MG/DL (7-18); CALCIUM LEVEL 9.7 MG/DL (8.5-10.1); CARBON DIOXIDE LEVEL 30 MEQ/L (21-32); CHLORIDE LEVEL 105 MEQ/L (98-107); CHOLESTEROL LEVEL 196 MG/DL (<200); CHOLESTEROL RISK RATIO 4.666 (<5); CPK CREATINE PHOSPHOKINASE 136 U/L (39-308); CREATININE FOR GFR 1.07 MG/DL (0.70-1.30); GLOMERULAR FILTRATION RATE > 60.0 (>56); GLUCOSE, FASTING 106 MG/DL (70-100); HDL CHOLESTEROL 42 MG/DL (>40); LDL CHOLESTEROL 93 MG/DL (<100); NON-HDL-C 154 MG/DL; POTASSIUM SERUM 3.9 MEQ/L (3.5-5.1); SODIUM LEVEL 141 MEQ/L (136-145); TOTAL PROTEIN 7.4 GM/DL (6.4-8.2); TRIGLYCERIDES LEVEL 305 MG/DL (<150)
[2020-07-08 15:36] LABS: HEMOGLOBIN A1c 6.2 %
== END ==
LOC: M WUC 11:07
PROVIDERS: ATTEND Nurse Practitioner Family
DX: I10 Essential (primary) hypertension (principal); E78.49 Other hyperlipidemia

== ENCOUNTER → 2020-07-09 | Outpatient (REF) | payer BC ==
[2020-07-09 19:35] LABS: MALB URINE SIEMENS 9.3 MG/L; MAU/CREAT RATIO 6.1 MCG/MG (0.0-30.0)
== END ==
LOC: M LAB REF 17:37
PROVIDERS: ATTEND Nurse Practitioner Family
DX: E78.5 Hyperlipidemia, unspecified (principal); I10 Essential (primary) hypertension; E11.9 Type 2 diabetes mellitus without complications

== ENCOUNTER → 2020-10-01 | Outpatient (CLI) | payer BC ==
[~2020-10-01] MED LIST changes: +CRES10TA PO; +MELO15TA28 PO
--- NOTE | 2020-10-01 14:22 | REP ---
INDICATION: LT LEG PAIN SWELLING ? DVT COMPARISON: None. TECHNIQUE: Duke scale and color Doppler evaluation left lower extremity using linear high frequency transducer. FINDINGS: Ultrasound examination of the left lower extremity deep venous structures from the common femoral vein to the popliteal vein demonstrates normal compressibility flow and wave patterns in response to respiration and augmentation. There is no evidence for deep venous thrombosis. IMPRESSION: No evidence for deep venous thrombosis. <Electronically signed by Erickson Schmidt > 10/01/20 [id number]
== END ==
LOC: M RAD 13:04
DX: M79.605 Pain in left leg (principal); M79.604 Pain in right leg

== ENCOUNTER → 2020-10-07 | Outpatient (CLI) | payer BC ==
[2020-10-07 16:42] LABS: HEMATOCRIT 45.6 % (42.0-52.0); HEMOGLOBIN 14.2 g/dl (13.5-17.5); MEAN CORPUSCULAR HGB CONC 31.1 g/dl (32.0-36.5); MEAN CORPUSCULAR VOLUME 96.2 fl (80.0-96.0); PLATELET COUNT, AUTOMATED 206 10^3/uL (150-450); RED BLOOD COUNT 4.74 10^6/uL (4.30-6.10)
[2020-10-07 17:24] LABS: MALB URINE SIEMENS 15.9 MG/L; MAU/CREAT RATIO 10.1 MCG/MG (0.0-30.0)
[2020-10-07 17:30] LABS: ALT/SGPT 49 U/L (12-78); BILIRUBIN,TOTAL 0.5 MG/DL (0.2-1.0); BLOOD UREA NITROGEN 21 MG/DL (7-18); CALCIUM LEVEL 9.4 MG/DL (8.5-10.1); CARBON DIOXIDE LEVEL 27 MEQ/L (21-32); CHLORIDE LEVEL 109 MEQ/L (98-107); CHOLESTEROL LEVEL 146 MG/DL (<200); CHOLESTEROL RISK RATIO 3.106 (<5); CPK CREATINE PHOSPHOKINASE 133 U/L (39-308); CREATININE FOR GFR 0.93 MG/DL (0.70-1.30); GLOMERULAR FILTRATION RATE > 60.0 (>56); GLUCOSE, FASTING 110 MG/DL (70-100); HDL CHOLESTEROL 47 MG/DL (>40); LDL CHOLESTEROL 78 MG/DL (<100); NON-HDL-C 99 MG/DL; POTASSIUM SERUM 4.7 MEQ/L (3.5-5.1); SODIUM LEVEL 141 MEQ/L (136-145); TOTAL PROTEIN 7.2 GM/DL (6.4-8.2); TRIGLYCERIDES LEVEL 107 MG/DL (<150)
[2020-10-07 17:39] LABS: HEMOGLOBIN A1c 6.1 %
== END ==
LOC: M WUC 11:21
PROVIDERS: ATTEND Nurse Practitioner Family
DX: E78.5 Hyperlipidemia, unspecified (principal); E11.9 Type 2 diabetes mellitus without complications; I10 Essential (primary) hypertension

== ENCOUNTER → 2020-10-08 | Outpatient (CLI) | payer BC | LOC: M LABSMTC 09:43 | PROVIDERS: ATTEND Anesthesiology | DX: Z01.812 Encounter for preprocedural laboratory examination (principal); Z20.828 Contact with and (suspected) exposure to other viral communicable diseases ==

== ENCOUNTER 2020-10-13 11:35 | Day surgery (SDC) | payer BC ==
[~2020-10-13] VITALS: Ht 172.7 cm; Wt 98.9 kg
[~2020-10-13 11:35] MED LIST changes: +NS 1,000 ML IV ONE
[2020-10-13] MEDS ORDERED: propofoL 500 MG/50 ML VIAL As Ordered ONE (12:07)
[2020-10-13] MEDS ORDERED: LIDOCAINE 2% 100MG/5ML SDV (FOR ANES.) As Ordered ONE (12:07)
--- NOTE | 2020-10-13 13:37 | ROOR ---
Patient Name: Herbert Baez Procedure Date: 10/13/2020 1:05 PM Date of : 1965 Age: 54 Room: [facility] Gender: Male Note Status: Finalized Procedure: Upper GI endoscopy Indications: Heartburn Providers: Pro Crane MD Referring MD: Carrie Benson Np Requesting Provider: Medicines: Monitored Anesthesia Care Complications: No immediate complications. Procedure: Pre-Anesthesia Assessment: - Prior to the procedure, a History and Physical was performed, and patient medications and allergies were reviewed. The patient is competent. The risks and benefits of the procedure and the sedation options and risks were discussed with the patient. All questions were answered and informed consent was obtained. Patient identification and proposed procedure were verified by the physician, the nurse and the anesthesiologist in the procedure room. Mental Status Examination: alert and oriented. Airway Examination: normal oropharyngeal airway and neck mobility. Respiratory Examination: clear to auscultation. CV Examination: normal. Prophylactic Antibiotics: The patient does not require prophylactic antibiotics. Prior Anticoagulants: The patient has taken no previous anticoagulant or antiplatelet agents. ASA Grade Assessment: II - A patient with mild systemic disease. After reviewing the risks and benefits, the patient was deemed in satisfactory condition to undergo the procedure. The anesthesia plan was to use monitored anesthesia care (MAC). Immediately prior to administration of medications, the patient was re-assessed for adequacy to receive sedatives. The heart rate, respiratory rate, oxygen saturations, blood pressure, adequacy of pulmonary ventilation, and response to care were monitored throughout the procedure. The physical status of the patient was re-assessed after the procedure. The Endoscope was introduced through the mouth, and advanced to the second part of duodenum. The upper GI endoscopy was accomplished without difficulty. The patient tolerated the procedure well. Findings: LA Grade A (one or more mucosal breaks less than 5 mm, not extending between tops of 2 mucosal folds) esophagitis with no bleeding was found 40 cm from the incisors. Biopsies were taken with a cold forceps for histology. Verification of patient identification for the specimen was done by the physician and nurse using the patient's name, date and medical record number. Estimated blood loss was minimal. No gross lesions were noted in the entire examined stomach. The duodenal bulb and second portion of the duodenum were normal. Impression: - LA Grade A reflux esophagitis. Rule out Moore's esophagus. Biopsied. - No gross lesions in the stomach. - Normal duodenal bulb and second portion of the duodenum. Recommendation: - Patient has a contact number available for emergencies. The signs and symptoms of potential delayed complications were discussed with the patient. Return to normal activities tomorrow. Written discharge instructions were provided to the patient. - High fiber diet. - Continue present medications. - Await pathology results. - Repeat upper endoscopy in 5 years for surveillance of Moore's esophagus. - Telephone GI clinic for pathology results in 2 weeks. - Return to primary care physician. Procedure Code(s): --- Professional --- 57138, Esophagogastroduodenoscopy, flexible, transoral; with biopsy, single or multiple Diagnosis Code(s): --- Professional --- K21.0, Gastro-esophageal reflux disease with esophagitis R12, Heartburn CPT copyright 2019 [employer]. All rights reserved. The codes documented in this report are preliminary and upon forging die sinker review may be revised to meet current compliance requirements. Pro Crane MD Pro Crane MD 10/13/2020 1:36:43 PM Electronically signed by Pro Crane MD Number of Addenda: 0 Note Initiated On: 10/13/2020 1:05 PM Estimated Blood Loss: Estimated blood loss was minimal.
[2020-10-13 14:05] VITALS: BP 125/83
--- NOTE | 2020-10-13 14:30 | ROOR ---
Patient Name: Herbert Baez Procedure Date: 10/13/2020 1:07 PM Date of : 1965 Age: 54 Room: [facility] Gender: Male Note Status: Finalized Procedure: Colonoscopy Indications: High risk colon cancer surveillance: Personal history of colonic polyps Providers: Pro Crane MD Referring MD: Carrie Benson Np Requesting Provider: Medicines: Monitored Anesthesia Care Complications: No immediate complications. Procedure: Pre-Anesthesia Assessment: - Prior to the procedure, a History and Physical was performed, and patient medications and allergies were reviewed. The patient is competent. The risks and benefits of the procedure and the sedation options and risks were discussed with the patient. All questions were answered and informed consent was obtained. Patient identification and proposed procedure were verified by the physician, the nurse and the anesthesiologist in the procedure room. Mental Status Examination: alert and oriented. Airway Examination: normal oropharyngeal airway and neck mobility. Respiratory Examination: clear to auscultation. CV Examination: normal. Prophylactic Antibiotics: The patient does not require prophylactic antibiotics. Prior Anticoagulants: The patient has taken no previous anticoagulant or antiplatelet agents. ASA Grade Assessment: II - A patient with mild systemic disease. After reviewing the risks and benefits, the patient was deemed in satisfactory condition to undergo the procedure. The anesthesia plan was to use monitored anesthesia care (MAC). Immediately prior to administration of medications, the patient was re-assessed for adequacy to receive sedatives. The heart rate, respiratory rate, oxygen saturations, blood pressure, adequacy of pulmonary ventilation, and response to care were monitored throughout the procedure. The physical status of the patient was re-assessed after the procedure. The Colonoscope was introduced through the anus and advanced to the cecum, identified by appendiceal orifice and ileocecal valve. The colonoscopy was performed without difficulty. The patient tolerated the procedure well. The quality of the bowel preparation was good. The ileocecal valve, appendiceal orifice, and rectum were photographed. Scope insertion time was 3 minutes. Scope withdrawal time was 9 minutes. The total duration of the procedure was 12 minutes. Findings: The perianal and digital rectal examinations were normal. A 4 mm polyp was found in the sigmoid colon. The polyp was sessile. The polyp was removed with a cold biopsy forceps. Resection and retrieval were complete. Verification of patient identification for the specimen was done by the physician and nurse using the patient's name, date and medical record number. Estimated blood loss was minimal. Non-bleeding external and internal hemorrhoids were found during retroflexion. The hemorrhoids were medium-sized. Impression: - One 4 mm polyp in the sigmoid colon, removed with a cold biopsy forceps. Resected and retrieved. - Non-bleeding external and internal hemorrhoids. Recommendation: - Patient has a contact number available for emergencies. The signs and symptoms of potential delayed complications were discussed with the patient. Return to normal activities tomorrow. Written discharge instructions were provided to the patient. - High fiber diet. - Continue present medications. - Await pathology results. - Repeat colonoscopy in 5-10 years for surveillance based on pathology results. - Telephone GI clinic for pathology results in 2 weeks. - Return to primary care physician. Procedure Code(s): --- Professional --- 13062, Colonoscopy, flexible; with biopsy, single or multiple Diagnosis Code(s): --- Professional --- Z86.010, Personal history of colonic polyps K63.5, Polyp of colon K64.8, Other hemorrhoids CPT copyright 2019 [employer]. All rights reserved. The codes documented in this report are preliminary and upon tobacco prevention health educator review may be revised to meet current compliance requirements. Pro Crane MD Pro Crane MD 10/13/2020 2:30:02 PM Electronically signed by Pro Crane MD Number of Addenda: 0 Note Initiated On: 10/13/2020 1:07 PM Estimated Blood Loss: Estimated blood loss was minimal.
== END 2020-10-13 14:28 | disposition home or self-care (01) ==
LOC: M OPP 11:35
PROVIDERS: ATTEND Internal Medicine Gastroenterology
DX: Z12.11 Encounter for screening for malignant neoplasm of colon (principal); Z86.010 Personal history of colon polyps; D12.6 Benign neoplasm of colon, unspecified; K64.8 Other hemorrhoids; K21.00 Gastro-esophageal reflux disease with esophagitis, without bleeding; R12 Heartburn; E11.9 Type 2 diabetes mellitus without complications; Z79.82 Long term (current) use of aspirin; Z79.899 Other long term (current) drug therapy

== ENCOUNTER → 2020-10-20 | Outpatient (CLI) | payer BC ==
[~2020-10-20] MED LIST changes: -NS 1,000 ML IV ONE
== END ==
LOC: M WUC 14:35
PROVIDERS: ATTEND Nurse Practitioner Family
DX: E83.42 Hypomagnesemia (principal)

== ENCOUNTER → 2021-01-07 | Outpatient (CLI) | payer BC ==
[2021-01-07 10:26] LABS: HEMATOCRIT 46.4 % (42.0-52.0); HEMOGLOBIN 14.9 g/dl (13.5-17.5); MEAN CORPUSCULAR HGB CONC 32.1 g/dl (32.0-36.5); MEAN CORPUSCULAR VOLUME 93.5 fl (80.0-96.0); PLATELET COUNT, AUTOMATED 196 10^3/uL (150-450); RED BLOOD COUNT 4.96 10^6/uL (4.30-6.10); WHITE BLOOD COUNT 4.8 10^3/uL (4.0-10.0)
[2021-01-07 11:09] LABS: ALT/SGPT 54 U/L (12-78); BILIRUBIN,TOTAL 1.2 MG/DL (0.2-1.0); BLOOD UREA NITROGEN 26 MG/DL (7-18); CALCIUM LEVEL 9.2 MG/DL (8.5-10.1); CARBON DIOXIDE LEVEL 30 MEQ/L (21-32); CHLORIDE LEVEL 103 MEQ/L (98-107); CHOLESTEROL LEVEL 174 MG/DL (<200); CHOLESTEROL RISK RATIO 3.625 (<5); CPK CREATINE PHOSPHOKINASE 99 U/L (39-308); CREATININE FOR GFR 0.88 MG/DL (0.70-1.30); GLOMERULAR FILTRATION RATE > 60.0 (>56); GLUCOSE, FASTING 109 MG/DL (70-100); HDL CHOLESTEROL 48 MG/DL (>40); LDL CHOLESTEROL 104 MG/DL (<100); NON-HDL-C 126 MG/DL; POTASSIUM SERUM 4.1 MEQ/L (3.5-5.1); SODIUM LEVEL 138 MEQ/L (136-145); TOTAL PROTEIN 7.2 GM/DL (6.4-8.2); TRIGLYCERIDES LEVEL 110 MG/DL (<150)
[2021-01-07 11:13] LABS: CREATININE, URINE 76.6 MG/DL; MALB URINE SIEMENS 5.5 MG/L; MAU/CREAT RATIO 7.1 MCG/MG (0.0-30.0)
[2021-01-07 11:14] LABS: HEMOGLOBIN A1c 5.7 %
== END ==
LOC: M WUC 08:05
PROVIDERS: ATTEND Nurse Practitioner Family
DX: E78.5 Hyperlipidemia, unspecified (principal); I10 Essential (primary) hypertension; R73.9 Hyperglycemia, unspecified

== ENCOUNTER → 2021-04-13 | Outpatient (CLI) | payer BC ==
[2021-04-13 17:34] LABS: HEMOGLOBIN 15.5 g/dl (13.5-17.5); MEAN CORPUSCULAR HEMOGLOBIN 29.7 pg (27.0-33.0); MEAN CORPUSCULAR VOLUME 95.8 fl (80.0-96.0); PLATELET COUNT, AUTOMATED 221 10^3/uL (150-450); RED BLOOD COUNT 5.22 10^6/uL (4.30-6.10); WHITE BLOOD COUNT 5.3 10^3/uL (4.0-10.0)
[2021-04-13 18:30] LABS: ALBUMIN 3.5 GM/DL (3.2-5.2); ALT/SGPT 38 U/L (12-78); BLOOD UREA NITROGEN 22 MG/DL (7-18); CALCIUM LEVEL 9.5 MG/DL (8.5-10.1); CARBON DIOXIDE LEVEL 25 MEQ/L (21-32); CHLORIDE LEVEL 106 MEQ/L (98-107); CHOLESTEROL LEVEL 271 MG/DL (<200); CHOLESTEROL RISK RATIO 6.302 (<5); CPK CREATINE PHOSPHOKINASE 96 U/L (39-308); CREATININE FOR GFR 0.83 MG/DL (0.70-1.30); GLOMERULAR FILTRATION RATE > 60.0 (>56); GLUCOSE, FASTING 106 MG/DL (70-100); HDL CHOLESTEROL 43 MG/DL (>40); LDL CHOLESTEROL 179 MG/DL (<100); NON-HDL-C 228 MG/DL; POTASSIUM SERUM 4.1 MEQ/L (3.5-5.1); SODIUM LEVEL 140 MEQ/L (136-145); TOTAL PROTEIN 7.1 GM/DL (6.4-8.2); TRIGLYCERIDES LEVEL 244 MG/DL (<150)
[2021-04-13 19:37] LABS: HEMOGLOBIN A1c 6.1 %
== END ==
LOC: M WUC 10:56
PROVIDERS: ATTEND Nurse Practitioner Family
DX: I10 Essential (primary) hypertension (principal); E78.5 Hyperlipidemia, unspecified; E11.9 Type 2 diabetes mellitus without complications

== ENCOUNTER → 2021-04-14 | Outpatient (REF) | payer BC ==
[2021-04-14 15:41] LABS: MALB URINE SIEMENS 10.8 MG/L; MAU/CREAT RATIO 7.7 MCG/MG (0.0-30.0)
== END ==
LOC: M LAB REF 14:36
PROVIDERS: ATTEND Nurse Practitioner Family
DX: I10 Essential (primary) hypertension (principal); E11.9 Type 2 diabetes mellitus without complications; E78.5 Hyperlipidemia, unspecified

== ENCOUNTER → 2021-07-14 | Outpatient (CLI) | payer BC ==
[~2021-07-14] MED LIST changes: +OMEP40CA4 PO; -OMEP40CA97 PO
[2021-07-14 16:34] LABS: HEMATOCRIT 49.2 % (42.0-52.0); MEAN CORPUSCULAR HEMOGLOBIN 31.2 pg (27.0-33.0); MEAN CORPUSCULAR HGB CONC 32.5 g/dl (32.0-36.5); MEAN CORPUSCULAR VOLUME 95.9 fl (80.0-96.0); PLATELET COUNT, AUTOMATED 198 10^3/uL (150-450); RED BLOOD COUNT 5.13 10^6/uL (4.30-6.10); WHITE BLOOD COUNT 5.1 10^3/uL (4.0-10.0)
[2021-07-14 17:07] LABS: ALBUMIN 3.9 GM/DL (3.2-5.2); ALT/SGPT 53 U/L (12-78); BILIRUBIN,TOTAL 0.9 MG/DL (0.2-1.0); BLOOD UREA NITROGEN 14 MG/DL (7-18); CARBON DIOXIDE LEVEL 30 MEQ/L (21-32); CHLORIDE LEVEL 106 MEQ/L (98-107); CHOLESTEROL LEVEL 217 MG/DL (<200); CHOLESTEROL RISK RATIO 4.717 (<5); CPK CREATINE PHOSPHOKINASE 114 U/L (39-308); GLOMERULAR FILTRATION RATE > 60.0 (>56); GLUCOSE, FASTING 104 MG/DL (70-100); HDL CHOLESTEROL 46 MG/DL (>40); LDL CHOLESTEROL 133 MG/DL (<100); NON-HDL-C 171 MG/DL; SODIUM LEVEL 140 MEQ/L (136-145); TOTAL PROTEIN 7.1 GM/DL (6.4-8.2); TRIGLYCERIDES LEVEL 189 MG/DL (<150)
== END ==
LOC: M WUC 14:28
PROVIDERS: ATTEND Nurse Practitioner Family
DX: I10 Essential (primary) hypertension (principal); E78.5 Hyperlipidemia, unspecified; R73.9 Hyperglycemia, unspecified

== ENCOUNTER → 2021-10-12 | Outpatient (CLI) | payer BC ==
[2021-10-12 16:46] LABS: HEMATOCRIT 49.3 % (42.0-52.0); MEAN CORPUSCULAR HEMOGLOBIN 30.7 pg (27.0-33.0); MEAN CORPUSCULAR HGB CONC 32.5 g/dl (32.0-36.5); MEAN CORPUSCULAR VOLUME 94.6 fl (80.0-96.0); PLATELET COUNT, AUTOMATED 211 10^3/uL (150-450); RED BLOOD COUNT 5.21 10^6/uL (4.30-6.10); WHITE BLOOD COUNT 4.5 10^3/uL (4.0-10.0)
[2021-10-12 17:09] LABS: MALB URINE SIEMENS 10.2 MG/L; MAU/CREAT RATIO 5.9 MCG/MG (0.0-30.0)
[2021-10-12 17:37] LABS: ALBUMIN 3.9 GM/DL (3.2-5.2); ALT/SGPT 47 U/L (12-78); BILIRUBIN,TOTAL 0.7 MG/DL (0.2-1.0); BLOOD UREA NITROGEN 15 MG/DL (7-18); CALCIUM LEVEL 9.2 MG/DL (8.5-10.1); CARBON DIOXIDE LEVEL 31 MEQ/L (21-32); CHLORIDE LEVEL 104 MEQ/L (98-107); CHOLESTEROL LEVEL 179 MG/DL (<200); CHOLESTEROL RISK RATIO 3.314 (<5); GLOMERULAR FILTRATION RATE > 60.0 (>56); GLUCOSE, FASTING 108 MG/DL (70-100); HDL CHOLESTEROL 54 MG/DL (>40); LDL CHOLESTEROL 110 MG/DL (<100); NON-HDL-C 125 MG/DL; SODIUM LEVEL 139 MEQ/L (136-145); TOTAL PROTEIN 7.4 GM/DL (6.4-8.2); TRIGLYCERIDES LEVEL 75 MG/DL (<150)
== END ==
LOC: M WUC 14:18
PROVIDERS: ATTEND Nurse Practitioner Family
DX: I10 Essential (primary) hypertension (principal); E78.5 Hyperlipidemia, unspecified; E11.9 Type 2 diabetes mellitus without complications

== ENCOUNTER → 2022-01-10 | Outpatient (CLI) | payer BC ==
[2022-01-10 15:15] LABS: HEMATOCRIT 52.4 % (42.0-52.0); MEAN CORPUSCULAR HEMOGLOBIN 30.4 pg (27.0-33.0); MEAN CORPUSCULAR HGB CONC 32.4 g/dl (32.0-36.5); MEAN CORPUSCULAR VOLUME 93.6 fl (80.0-96.0); PLATELET COUNT, AUTOMATED 168 10^3/uL (150-450); WHITE BLOOD COUNT 5.6 10^3/uL (4.0-10.0)
[2022-01-10 15:38] LABS: ALBUMIN 3.9 GM/DL (3.2-5.2); ALT/SGPT 38 U/L (12-78); BILIRUBIN,TOTAL 1.4 MG/DL (0.2-1.0); BLOOD UREA NITROGEN 15 MG/DL (7-18); CALCIUM LEVEL 9.3 MG/DL (8.5-10.1); CARBON DIOXIDE LEVEL 32 MEQ/L (21-32); CHLORIDE LEVEL 105 MEQ/L (98-107); CHOLESTEROL LEVEL 167 MG/DL (<200); CHOLESTEROL RISK RATIO 3.479 (<5); CREATININE FOR GFR 1.15 MG/DL (0.70-1.30); GLOMERULAR FILTRATION RATE > 60.0 (>56); GLUCOSE, FASTING 115 MG/DL (70-100); HDL CHOLESTEROL 48 MG/DL (>40); LDL CHOLESTEROL 104 MG/DL (<100); NON-HDL-C 119 MG/DL; POTASSIUM SERUM 4.5 MEQ/L (3.5-5.1); SODIUM LEVEL 141 MEQ/L (136-145); TRIGLYCERIDES LEVEL 76 MG/DL (<150)
[2022-01-10 15:52] LABS: MALB URINE SIEMENS 48.2 MG/L; MAU/CREAT RATIO 16.2 MCG/MG (0.0-30.0)
[2022-01-10 15:53] LABS: HEMOGLOBIN A1c 5.9 %
== END ==
LOC: M LAB 14:34
PROVIDERS: ATTEND Nurse Practitioner Family
DX: I10 Essential (primary) hypertension (principal); E78.5 Hyperlipidemia, unspecified; E11.9 Type 2 diabetes mellitus without complications

== ENCOUNTER → 2022-04-12 | Outpatient (CLI) | payer BC ==
[2022-04-12 16:26] LABS: HEMATOCRIT 46.5 % (42.0-52.0); HEMOGLOBIN 15.5 g/dl (13.5-17.5); MEAN CORPUSCULAR HEMOGLOBIN 31.4 pg (27.0-33.0); MEAN CORPUSCULAR HGB CONC 33.3 g/dl (32.0-36.5); MEAN CORPUSCULAR VOLUME 94.1 fl (80.0-96.0); PLATELET COUNT, AUTOMATED 186 10^3/uL (150-450); RED BLOOD COUNT 4.94 10^6/uL (4.30-6.10); WHITE BLOOD COUNT 4.6 10^3/uL (4.0-10.0)
[2022-04-12 17:01] LABS: ALBUMIN 3.7 GM/DL (3.2-5.2); ALT/SGPT 38 U/L (12-78); BILIRUBIN,TOTAL 1.6 MG/DL (0.2-1.0); BLOOD UREA NITROGEN 17 MG/DL (7-18); CARBON DIOXIDE LEVEL 29 MEQ/L (21-32); CHLORIDE LEVEL 106 MEQ/L (98-107); CHOLESTEROL LEVEL 164 MG/DL (<200); GLOMERULAR FILTRATION RATE > 60.0 (>56); GLUCOSE, FASTING 111 MG/DL (70-100); HDL CHOLESTEROL 50 MG/DL (>40); LDL CHOLESTEROL 96 MG/DL (<100); NON-HDL-C 114 MG/DL; POTASSIUM SERUM 4.1 MEQ/L (3.5-5.1); SODIUM LEVEL 139 MEQ/L (136-145); TOTAL PROTEIN 7.3 GM/DL (6.4-8.2); TRIGLYCERIDES LEVEL 88 MG/DL (<150)
== END ==
LOC: M WUC 13:51
PROVIDERS: ATTEND Nurse Practitioner Family
DX: I10 Essential (primary) hypertension (principal); E78.5 Hyperlipidemia, unspecified

== ENCOUNTER → 2022-07-13 | Outpatient (CLI) | payer BC ==
[~2022-07-13] MED LIST changes: +FISH10005 PO; -FISH7.5C PO
[2022-07-13 16:37] LABS: HEMATOCRIT 55.6 % (42.0-52.0); HEMOGLOBIN 17.8 g/dl (13.5-17.5); MEAN CORPUSCULAR HEMOGLOBIN 30.5 pg (27.0-33.0); MEAN CORPUSCULAR VOLUME 95.4 fl (80.0-96.0); PLATELET COUNT, AUTOMATED 184 10^3/uL (150-450); RED BLOOD COUNT 5.83 10^6/uL (4.30-6.10); WHITE BLOOD COUNT 5.5 10^3/uL (4.0-10.0)
[2022-07-13 17:31] LABS: ALBUMIN 4.1 GM/DL (3.2-5.2); ALT/SGPT 33 U/L (12-78); BILIRUBIN,TOTAL 1.2 MG/DL (0.2-1.0); BLOOD UREA NITROGEN 15 MG/DL (7-18); CALCIUM LEVEL 9.8 MG/DL (8.5-10.1); CARBON DIOXIDE LEVEL 29 MEQ/L (21-32); CHLORIDE LEVEL 104 MEQ/L (98-107); CREATININE FOR GFR 1.01 MG/DL (0.70-1.30); GLOMERULAR FILTRATION RATE > 60.0 (>56); GLUCOSE, FASTING 116 MG/DL (70-100); POTASSIUM SERUM 4.5 MEQ/L (3.5-5.1); SODIUM LEVEL 137 MEQ/L (136-145); TOTAL PROTEIN 7.2 GM/DL (6.4-8.2)
[2022-07-13 19:14] LABS: HEMOGLOBIN A1c 6.1 %
[2022-07-15 16:13] LABS: CHOLESTEROL LEVEL 173 MG/DL (<200); CHOLESTEROL RISK RATIO 3.392 (<5); HDL CHOLESTEROL 51 MG/DL (>40); LDL CHOLESTEROL 98 MG/DL (<100); NON-HDL-C 122 MG/DL; TRIGLYCERIDES LEVEL 119 MG/DL (<150)
== END ==
LOC: M WUC 13:31
PROVIDERS: ATTEND Nurse Practitioner Family
DX: I10 Essential (primary) hypertension (principal); E78.5 Hyperlipidemia, unspecified; R73.9 Hyperglycemia, unspecified

== ENCOUNTER → 2022-10-11 | Outpatient (CLI) | payer BC ==
[2022-10-11 17:05] LABS: HEMATOCRIT 50.9 % (42.0-52.0); HEMOGLOBIN 16.6 g/dl (13.5-17.5); MEAN CORPUSCULAR HEMOGLOBIN 31.3 pg (27.0-33.0); MEAN CORPUSCULAR HGB CONC 32.6 g/dl (32.0-36.5); PLATELET COUNT, AUTOMATED 178 10^3/uL (150-450); WHITE BLOOD COUNT 4.2 10^3/uL (4.0-10.0)
[2022-10-11 17:41] LABS: CREATININE, URINE 139.4 MG/DL; MALB URINE SIEMENS < 5.0 MG/DL; MAU/CREAT RATIO 3.5 MCG/MG (0.0-30.0)
[2022-10-11 17:48] LABS: ALBUMIN 3.9 G/DL (3.2-5.2); ALKALINE PHOSPHATASE 39 U/L (46-116); ALT/SGPT 39 U/L (7.0-40); AST/SGOT 22 U/L (<34); BILIRUBIN,TOTAL 1.2 MG/DL (0.3-1.2); BLOOD UREA NITROGEN 19 MG/DL (9-23); CARBON DIOXIDE LEVEL 28 MMOL/L (20-31); CHLORIDE LEVEL 104 MMOL/L (98-107); CHOLESTEROL LEVEL 185 MG/DL (<200); CHOLESTEROL RISK RATIO 3.87 (<5); CPK CREATINE PHOSPHOKINASE 96 U/L (46-171); CREATININE FOR GFR 0.89 MG/DL (0.70-1.30); GLOMERULAR FILTRATION RATE > 60.0 (>56); GLUCOSE, FASTING 119 MG/DL (60-100); HDL CHOLESTEROL 47.7 MG/DL (>40); LDL CHOLESTEROL 101.1 MG/DL (<100); NON-HDL-C 137 MG/DL; POTASSIUM SERUM 4.5 MMOL/L (3.5-5.1); SODIUM LEVEL 140 MMOL/L (136-145); TOTAL PROTEIN 6.9 G/DL (5.7-8.2); TRIGLYCERIDES LEVEL 181 MG/DL (<150)
[2022-10-11 18:28] LABS: HEMOGLOBIN A1c 5.9 % (4.0-6.0)
== END ==
LOC: M WUC 12:57
PROVIDERS: ATTEND Internal Medicine Cardiovascular Disease
DX: E78.5 Hyperlipidemia, unspecified (principal); I10 Essential (primary) hypertension

== ENCOUNTER → 2023-01-05 | Outpatient (CLI) | payer BC, OTHER ==
[2023-01-05 10:46] LABS: HEMATOCRIT 52.7 % (42.0-52.0); MEAN CORPUSCULAR HGB CONC 32.3 g/dl (32.0-36.5); PLATELET COUNT, AUTOMATED 160 10^3/uL (150-450); RED BLOOD COUNT 5.49 10^6/uL (4.30-6.10); WHITE BLOOD COUNT 5.6 10^3/uL (4.0-10.0)
[2023-01-05 11:11] LABS: HEMOGLOBIN A1c 6.2 % (4.0-6.0)
[2023-01-05 11:18] LABS: ALBUMIN 4.4 G/DL (3.2-5.2); ALKALINE PHOSPHATASE 36 U/L (46-116); ALT/SGPT 42 U/L (7.0-40); AST/SGOT 37 U/L (<34); BILIRUBIN,TOTAL 1.1 MG/DL (0.3-1.2); BLOOD UREA NITROGEN 28 MG/DL (9-23); CALCIUM LEVEL 9.6 MG/DL (8.5-10.1); CARBON DIOXIDE LEVEL 31 MMOL/L (20-31); CHLORIDE LEVEL 100 MMOL/L (98-107); CHOLESTEROL LEVEL 221 MG/DL (<200); CHOLESTEROL RISK RATIO 4.59 (<5); CREATININE FOR GFR 1.01 MG/DL (0.70-1.30); GLOMERULAR FILTRATION RATE > 60.0 (>56); GLUCOSE, FASTING 91 MG/DL (60-100); HDL CHOLESTEROL 48.1 MG/DL (>40); LDL CHOLESTEROL 130.5 MG/DL (<100); NON-HDL-C 173 MG/DL; POTASSIUM SERUM 4.3 MMOL/L (3.5-5.1); SODIUM LEVEL 138 MMOL/L (136-145); TOTAL PROTEIN 7.5 G/DL (5.7-8.2); TRIGLYCERIDES LEVEL 212 MG/DL (<150)
[2023-01-05 11:20] LABS: CPK CREATINE PHOSPHOKINASE 156 U/L (46-171)
== END ==
LOC: M WUC 08:15
PROVIDERS: ATTEND Internal Medicine Cardiovascular Disease
DX: I10 Essential (primary) hypertension (principal); E78.5 Hyperlipidemia, unspecified; R73.9 Hyperglycemia, unspecified

== ENCOUNTER → 2023-04-15 | Outpatient (CLI) | payer OTHER ==
[2023-04-15 11:26] LABS: HEMATOCRIT 49.9 % (42.0-52.0); HEMOGLOBIN 16.5 g/dl (13.5-17.5); MEAN CORPUSCULAR HEMOGLOBIN 31.3 pg (27.0-33.0); MEAN CORPUSCULAR HGB CONC 33.1 g/dl (32.0-36.5); MEAN CORPUSCULAR VOLUME 94.5 fl (80.0-96.0); PLATELET COUNT, AUTOMATED 203 10^3/uL (150-450); RED BLOOD COUNT 5.28 10^6/uL (4.30-6.10)
[2023-04-15 11:52] LABS: CPK CREATINE PHOSPHOKINASE 119 U/L (46-171)
[2023-04-15 11:53] LABS: ALBUMIN 4.2 G/DL (3.2-5.2); ALKALINE PHOSPHATASE 36 U/L (46-116); ALT/SGPT 30 U/L (7.0-40); AST/SGOT 18 U/L (<34); BILIRUBIN,TOTAL 0.8 MG/DL (0.3-1.2); BLOOD UREA NITROGEN 25 MG/DL (9-23); CALCIUM LEVEL 9.6 MG/DL (8.5-10.1); CARBON DIOXIDE LEVEL 29 MMOL/L (20-31); CHLORIDE LEVEL 102 MMOL/L (98-107); CHOLESTEROL LEVEL 201 MG/DL (<200); CHOLESTEROL RISK RATIO 3.98 (<5); CREATININE FOR GFR 0.98 MG/DL (0.70-1.30); GLOMERULAR FILTRATION RATE > 60.0 (>56); GLUCOSE, FASTING 104 MG/DL (60-100); HDL CHOLESTEROL 50.5 MG/DL (>40); LDL CHOLESTEROL 117.7 MG/DL (<100); NON-HDL-C 150.5 MG/DL; POTASSIUM SERUM 4.6 MMOL/L (3.5-5.1); SODIUM LEVEL 137 MMOL/L (136-145); TOTAL PROTEIN 7.2 G/DL (5.7-8.2); TRIGLYCERIDES LEVEL 164 MG/DL (<150)
[2023-04-15 11:59] LABS: HEMOGLOBIN A1c 6.1 % (4.0-6.0)
== END ==
LOC: M WUC 08:28
PROVIDERS: ATTEND Nurse Practitioner Family
DX: I10 Essential (primary) hypertension (principal); E78.5 Hyperlipidemia, unspecified; E11.9 Type 2 diabetes mellitus without complications

== ENCOUNTER → 2023-11-06 | Outpatient (CLI) | payer OTHER ==
[2023-11-06 12:56] LABS: BASO % 0.5 % (0.0-1.0); EOS # 0.1 10^3/uL (0.0-0.5); EOS % 3.1 % (0.0-3.0); HEMATOCRIT 45.5 % (42.0-52.0); HEMOGLOBIN 15.2 g/dl (13.5-17.5); LYMPH # 1.4 10^3/uL (1.5-5.0); MEAN CORPUSCULAR HEMOGLOBIN 31.5 pg (27.0-33.0); MEAN CORPUSCULAR HGB CONC 33.4 g/dl (32.0-36.5); MEAN CORPUSCULAR VOLUME 94.2 fl (80.0-96.0); MONO # 0.5 10^3/uL (0.0-0.8); MONO % 11.6 % (2.0-8.0); NEUTROPHILS # 2.2 10^3/uL (1.5-8.5); NEUTROPHILS % 51.6 % (36.0-66.0); PLATELET COUNT, AUTOMATED 173 10^3/uL (150-450); RED BLOOD COUNT 4.83 10^6/uL (4.30-6.10); WHITE BLOOD COUNT 4.2 10^3/uL (4.0-10.0)
[2023-11-06 13:12] LABS: HEMOGLOBIN A1c 5.9 % (4.0-6.0)
[2023-11-06 13:21] LABS: ALKALINE PHOSPHATASE 35 U/L (46-116); ALT/SGPT 43 U/L (7.0-40); AST/SGOT 21 U/L (<34); BILIRUBIN,TOTAL 1.6 MG/DL (0.3-1.2); BLOOD UREA NITROGEN 20 MG/DL (9-23); CALCIUM LEVEL 9.6 MG/DL (8.5-10.1); CARBON DIOXIDE LEVEL 29 MMOL/L (20-31); CHLORIDE LEVEL 106 MMOL/L (98-107); CHOLESTEROL LEVEL 193 MG/DL (<200); CHOLESTEROL RISK RATIO 4.15 (<5); CREATININE FOR GFR 0.83 MG/DL (0.70-1.30); GLOMERULAR FILTRATION RATE > 60.0 (>56); GLUCOSE, FASTING 107 MG/DL (60-100); HDL CHOLESTEROL 46.5 MG/DL (>40); LDL CHOLESTEROL 119.7 MG/DL (<100); MAU/CREAT RATIO 2.3 MCG/MG (0.0-30.0); NON-HDL-C 146.5 MG/DL; POTASSIUM SERUM 4.3 MMOL/L (3.5-5.1); SODIUM LEVEL 140 MMOL/L (136-145); TOTAL PROTEIN 6.9 G/DL (5.7-8.2); TRIGLYCERIDES LEVEL 134 MG/DL (<150)
[2023-11-06 13:23] LABS: CPK CREATINE PHOSPHOKINASE 119 U/L (46-171)
== END ==
LOC: M LAB 12:16
PROVIDERS: ATTEND Nurse Practitioner Family
DX: E11.9 Type 2 diabetes mellitus without complications (principal)

== ENCOUNTER → 2024-03-01 | Outpatient (CLI) | payer OTHER | LOC: M WUC 08:13 | PROVIDERS: ATTEND Physician Assistant | DX: Z12.5 Encounter for screening for malignant neoplasm of prostate (principal) ==

== ENCOUNTER → 2024-03-01 | Outpatient (CLI) | payer OTHER ==
[2024-03-01 12:49] LABS: BASO % 0.5 % (0.0-1.0); EOS # 0.1 10^3/uL (0.0-0.5); EOS % 1.6 % (0.0-3.0); HEMATOCRIT 48.2 % (42.0-52.0); HEMOGLOBIN 15.6 g/dl (13.5-17.5); LYMPH # 2.3 10^3/uL (1.5-5.0); LYMPH % 36.4 % (24.0-44.0); MEAN CORPUSCULAR HGB CONC 32.4 g/dl (32.0-36.5); MEAN CORPUSCULAR VOLUME 95.6 fl (80.0-96.0); MONO # 0.6 10^3/uL (0.0-0.8); MONO % 9.6 % (2.0-8.0); NEUTROPHILS # 3.3 10^3/uL (1.5-8.5); NEUTROPHILS % 51.6 % (36.0-66.0); PLATELET COUNT, AUTOMATED 158 10^3/uL (150-450); RED BLOOD COUNT 5.04 10^6/uL (4.30-6.10); WHITE BLOOD COUNT 6.3 10^3/uL (4.0-10.0)
[2024-03-01 13:27] LABS: HEMOGLOBIN A1c 5.9 % (4.0-6.0)
[2024-03-01 13:29] LABS: CREATININE, URINE 167.3 MG/DL; MAU/CREAT RATIO 2.9 MCG/MG (0.0-30.0)
[2024-03-01 13:33] LABS: ALBUMIN 4.4 G/DL (3.2-5.2); ALKALINE PHOSPHATASE 37 U/L (46-116); ALT/SGPT 40 U/L (7.0-40); AST/SGOT 30 U/L (<34); BILIRUBIN,TOTAL 1.6 MG/DL (0.3-1.2); BLOOD UREA NITROGEN 21 MG/DL (9-23); CALCIUM LEVEL 9.8 MG/DL (8.5-10.1); CARBON DIOXIDE LEVEL 27 MMOL/L (20-31); CHLORIDE LEVEL 101 MMOL/L (98-107); CHOLESTEROL LEVEL 177 MG/DL (<200); CHOLESTEROL RISK RATIO 3.77 (<5); CREATININE FOR GFR 1.03 MG/DL (0.70-1.30); GLOMERULAR FILTRATION RATE > 60.0 (>56); GLUCOSE, FASTING 99 MG/DL (60-100); HDL CHOLESTEROL 46.9 MG/DL (>40); LDL CHOLESTEROL 105.5 MG/DL (<100); NON-HDL-C 130.1 MG/DL; POTASSIUM SERUM 4.3 MMOL/L (3.5-5.1); SODIUM LEVEL 137 MMOL/L (136-145); TOTAL PROTEIN 7.2 G/DL (5.7-8.2); TRIGLYCERIDES LEVEL 123 MG/DL (<150)
[2024-03-01 13:36] LABS: CPK CREATINE PHOSPHOKINASE 471 U/L (46-171)
== END ==
LOC: M WUC 08:11
PROVIDERS: ATTEND Nurse Practitioner Family
DX: E11.9 Type 2 diabetes mellitus without complications (principal)

== ENCOUNTER → 2024-05-29 | Outpatient (CLI) | payer OTHER ==
[2024-05-29 12:11] LABS: BLOOD UREA NITROGEN 24 MG/DL (9-23); CALCIUM LEVEL 9.9 MG/DL (8.5-10.1); CARBON DIOXIDE LEVEL 30 MMOL/L (20-31); CHLORIDE LEVEL 104 MMOL/L (98-107); CREATININE FOR GFR 1.05 MG/DL (0.70-1.30); GLOMERULAR FILTRATION RATE > 60.0 (>56); GLUCOSE, FASTING 149 MG/DL (60-100); POTASSIUM SERUM 4.1 MMOL/L (3.5-5.1); SODIUM LEVEL 139 MMOL/L (136-145)
[2024-05-29 12:20] LABS: BASO % 0.4 % (0.0-1.0); EOS # 0.1 10^3/uL (0.0-0.5); EOS % 1.8 % (0.0-3.0); HEMATOCRIT 45.7 % (42.0-52.0); HEMOGLOBIN 14.7 g/dl (13.5-17.5); LYMPH # 2.3 10^3/uL (1.5-5.0); MEAN CORPUSCULAR HGB CONC 32.2 g/dl (32.0-36.5); MEAN CORPUSCULAR VOLUME 96.4 fl (80.0-96.0); MONO # 0.4 10^3/uL (0.0-0.8); MONO % 7.3 % (2.0-8.0); NEUTROPHILS # 2.6 10^3/uL (1.5-8.5); NEUTROPHILS % 48.3 % (36.0-66.0); PLATELET COUNT, AUTOMATED 196 10^3/uL (150-450); RED BLOOD COUNT 4.74 10^6/uL (4.30-6.10); WHITE BLOOD COUNT 5.5 10^3/uL (4.0-10.0)
== END ==
LOC: M WUC 08:06
PROVIDERS: ATTEND Internal Medicine Cardiovascular Disease
DX: R94.39 Abnormal result of other cardiovascular function study (principal); I20.9 Angina pectoris, unspecified

== ENCOUNTER 2024-06-13 00:25 | Emergency (ER) | payer OTHER ==
[~2024-06-13] VITALS: Ht 175.3 cm; Wt 101.8 kg
[2024-06-13 00:27] VITALS: TEMP 98.4
[2024-06-13] MEDS ORDERED: CLOP75TA99 PO (03:06)
[2024-06-13 03:15] VITALS: BP 131/85; O2SAT 95
[2024-06-13] MEDS: CLOPIDOGREL 75 MG TAB PO STA (03:25)
== END 2024-06-13 03:35 | disposition home or self-care (01) ==
LOC: M ED 00:25
DX: I97.89 Other postprocedural complications and disorders of the circulatory system, not elsewhere classified (principal); I25.10 Atherosclerotic heart disease of native coronary artery without angina pectoris; Z79.82 Long term (current) use of aspirin; Z79.899 Other long term (current) drug therapy

== ENCOUNTER → 2024-07-14 | Outpatient (CLI) | payer OTHER ==
[~2024-07-14] MED LIST changes: +CLOP75TA99 PO
[2024-07-14 11:00] LABS: BASO % 0.4 % (0.0-1.0); EOS # 0.1 10^3/uL (0.0-0.5); EOS % 1.8 % (0.0-3.0); HEMATOCRIT 43.1 % (42.0-52.0); HEMOGLOBIN 14.5 g/dl (13.5-17.5); LYMPH # 2.4 10^3/uL (1.5-5.0); LYMPH % 48.3 % (24.0-44.0); MEAN CORPUSCULAR HEMOGLOBIN 31.7 pg (27.0-33.0); MEAN CORPUSCULAR HGB CONC 33.6 g/dl (32.0-36.5); MEAN CORPUSCULAR VOLUME 94.1 fl (80.0-96.0); MONO # 0.5 10^3/uL (0.0-0.8); MONO % 9.8 % (2.0-8.0); NEUTROPHILS % 39.5 % (36.0-66.0); PLATELET COUNT, AUTOMATED 168 10^3/uL (150-450); RED BLOOD COUNT 4.58 10^6/uL (4.30-6.10)
[2024-07-14 11:19] LABS: HEMOGLOBIN A1c 5.8 % (4.0-6.0)
[2024-07-14 11:24] LABS: ALKALINE PHOSPHATASE 38 U/L (46-116); ALT/SGPT 33 U/L (7.0-40); AST/SGOT 16 U/L (<34); BILIRUBIN,TOTAL 0.8 MG/DL (0.3-1.2); BLOOD UREA NITROGEN 18 MG/DL (9-23); CALCIUM LEVEL 9.8 MG/DL (8.5-10.1); CARBON DIOXIDE LEVEL 28 MMOL/L (20-31); CHLORIDE LEVEL 104 MMOL/L (98-107); CHOLESTEROL LEVEL 216 MG/DL (<200); CHOLESTEROL RISK RATIO 4.89 (<5); CPK CREATINE PHOSPHOKINASE 158 U/L (46-171); CREATININE FOR GFR 1.02 MG/DL (0.70-1.30); GLOMERULAR FILTRATION RATE > 60.0 (>56); GLUCOSE, FASTING 105 MG/DL (60-100); HDL CHOLESTEROL 44.1 MG/DL (>40); LDL CHOLESTEROL 140.5 MG/DL (<100); NON-HDL-C 171.9 MG/DL; POTASSIUM SERUM 4.1 MMOL/L (3.5-5.1); SODIUM LEVEL 138 MMOL/L (136-145); TOTAL PROTEIN 7.2 G/DL (5.7-8.2); TRIGLYCERIDES LEVEL 157 MG/DL (<150)
[2024-07-14 11:24] LABS: CREATININE, URINE 139.7 MG/DL
[2024-07-14 11:25] LABS: MALB URINE SIEMENS < 3.0 MG/L; MAU/CREAT RATIO 2.1 MCG/MG (0.0-30.0)
== END ==
LOC: M LAB 10:35
PROVIDERS: ATTEND Nurse Practitioner Family
DX: E78.5 Hyperlipidemia, unspecified (principal); E11.9 Type 2 diabetes mellitus without complications

== ENCOUNTER → 2024-10-14 | Outpatient (CLI) | payer OTHER ==
[2024-10-14 12:50] LABS: BASO % 0.7 % (0.0-1.0); EOS # 0.1 10^3/uL (0.0-0.5); HEMATOCRIT 44.3 % (42.0-52.0); HEMOGLOBIN 14.7 g/dl (13.5-17.5); LYMPH # 1.6 10^3/uL (1.5-5.0); LYMPH % 35.8 % (24.0-44.0); MEAN CORPUSCULAR HEMOGLOBIN 31.7 pg (27.0-33.0); MEAN CORPUSCULAR HGB CONC 33.2 g/dl (32.0-36.5); MEAN CORPUSCULAR VOLUME 95.7 fl (80.0-96.0); MONO # 0.5 10^3/uL (0.0-0.8); NEUTROPHILS # 2.4 10^3/uL (1.5-8.5); NEUTROPHILS % 51.3 % (36.0-66.0); PLATELET COUNT, AUTOMATED 183 10^3/uL (150-450); RED BLOOD COUNT 4.63 10^6/uL (4.30-6.10); WHITE BLOOD COUNT 4.6 10^3/uL (4.0-10.0)
[2024-10-14 13:19] LABS: CPK CREATINE PHOSPHOKINASE 141 U/L (46-171)
[2024-10-14 13:20] LABS: ALBUMIN 3.6 G/DL (3.2-5.2); ALKALINE PHOSPHATASE 34 U/L (40-129); ALT/SGPT 28 U/L (7.0-40); AST/SGOT 15 U/L (<34); BILIRUBIN,TOTAL 1.2 MG/DL (0.3-1.2); BLOOD UREA NITROGEN 18 MG/DL (9-23); CALCIUM LEVEL 9.7 MG/DL (8.5-10.1); CARBON DIOXIDE LEVEL 28 MMOL/L (20-31); CHLORIDE LEVEL 105 MMOL/L (98-107); CHOLESTEROL LEVEL 196 MG/DL (<200); CHOLESTEROL RISK RATIO 3.88 (<5); CREATININE FOR GFR 1.03 MG/DL (0.70-1.30); GLOMERULAR FILTRATION RATE > 60.0 (>56); GLUCOSE, FASTING 106 MG/DL (60-100); HDL CHOLESTEROL 50.5 MG/DL (>40); LDL CHOLESTEROL 126.5 MG/DL (<100); NON-HDL-C 145.5 MG/DL; POTASSIUM SERUM 4.2 MMOL/L (3.5-5.1); SODIUM LEVEL 140 MMOL/L (136-145); TOTAL PROTEIN 6.8 G/DL (5.7-8.2); TRIGLYCERIDES LEVEL 95 MG/DL (<150)
[2024-10-14 13:21] LABS: CREATININE, URINE 140.4 MG/DL; MALB URINE SIEMENS < 3.0 MG/L
== END ==
LOC: M LAB 11:01
PROVIDERS: ATTEND Nurse Practitioner Family
DX: R73.9 Hyperglycemia, unspecified (principal)

== ENCOUNTER → 2025-01-10 | Outpatient (CLI) | payer OTHER ==
[2025-01-10 14:41] LABS: HEMOGLOBIN A1c 5.9 % (4.0-6.0)
[2025-01-10 14:42] LABS: BASO % 0.6 % (0.0-1.0); EOS # 0.1 10^3/uL (0.0-0.5); EOS % 1.5 % (0.0-3.0); HEMATOCRIT 48.1 % (42.0-52.0); HEMOGLOBIN 15.6 g/dl (13.5-17.5); LYMPH # 2.4 10^3/uL (1.5-5.0); LYMPH % 44.9 % (24.0-44.0); MEAN CORPUSCULAR HEMOGLOBIN 31.4 pg (27.0-33.0); MEAN CORPUSCULAR HGB CONC 32.4 g/dl (32.0-36.5); MEAN CORPUSCULAR VOLUME 96.8 fl (80.0-96.0); MONO # 0.5 10^3/uL (0.0-0.8); MONO % 9.7 % (2.0-8.0); NEUTROPHILS # 2.3 10^3/uL (1.5-8.5); NEUTROPHILS % 43.1 % (36.0-66.0); PLATELET COUNT, AUTOMATED 188 10^3/uL (150-450); RED BLOOD COUNT 4.97 10^6/uL (4.30-6.10); WHITE BLOOD COUNT 5.4 10^3/uL (4.0-10.0)
[2025-01-10 14:58] LABS: ALBUMIN 3.9 G/DL (3.2-5.2); ALKALINE PHOSPHATASE 36 U/L (40-129); ALT/SGPT 36 U/L (7.0-40); AST/SGOT 19 U/L (<34); BILIRUBIN,TOTAL 0.7 MG/DL (0.3-1.2); BLOOD UREA NITROGEN 17 MG/DL (9-23); CALCIUM LEVEL 9.6 MG/DL (8.5-10.1); CARBON DIOXIDE LEVEL 30 MMOL/L (20-31); CHLORIDE LEVEL 103 MMOL/L (98-107); CHOLESTEROL LEVEL 200 MG/DL (<200); CHOLESTEROL RISK RATIO 4.26 (<5); CREATININE FOR GFR 1.08 MG/DL (0.70-1.30); GLOMERULAR FILTRATION RATE > 60.0 (>56); GLUCOSE, FASTING 107 MG/DL (60-100); HDL CHOLESTEROL 46.9 MG/DL (>40); LDL CHOLESTEROL 120.1 MG/DL (<100); NON-HDL-C 153.1 MG/DL; POTASSIUM SERUM 4.9 MMOL/L (3.5-5.1); SODIUM LEVEL 141 MMOL/L (136-145); TOTAL PROTEIN 7.4 G/DL (5.7-8.2); TRIGLYCERIDES LEVEL 165 MG/DL (<150)
[2025-01-10 14:59] LABS: CPK CREATINE PHOSPHOKINASE 128 U/L (46-171)
== END ==
LOC: M WUC 08:11
PROVIDERS: ATTEND Nurse Practitioner Family
DX: E78.5 Hyperlipidemia, unspecified (principal); R73.9 Hyperglycemia, unspecified

== ENCOUNTER → 2025-03-08 | Outpatient (CLI) | payer OTHER | LOC: M WUC 08:01 | PROVIDERS: ATTEND Physician Assistant | DX: Z12.5 Encounter for screening for malignant neoplasm of prostate (principal) | CPT/HCPCS: 36415; G0103 ==

== ENCOUNTER → 2025-07-16 | Outpatient (CLI) | payer OTHER ==
[~2025-07-16] MED LIST changes: -IBUP-1022 PO; +IBUP600T42 PO
[2025-07-16 12:42] LABS: BASO # 0.0 10^3/uL (0.0-0.2); BASO % 0.3 % (0.0-1.0); EOS # 0.1 10^3/uL (0.0-0.5); EOS % 1.6 % (0.0-3.0); LYMPH # 2.4 10^3/uL (1.5-5.0); LYMPH % 41.5 % (24.0-44.0); MONO # 0.6 10^3/uL (0.0-0.8); MONO % 11.1 % (2.0-8.0); NEUTROPHILS # 2.6 10^3/uL (1.5-8.5); NEUTROPHILS % 45.3 % (36.0-66.0); PLATELET COUNT, AUTOMATED 189 10^3/uL (150-450)
[2025-07-16 12:51] LABS: ESTIMATED AVERAGE GLUCOSE 131.0 MG/DL (60-110)
[2025-07-16 12:55] LABS: CPK CREATINE PHOSPHOKINASE 139 U/L (46-171)
[2025-07-16 12:57] LABS: ALT/SGPT 39 U/L (7.0-40); AST/SGOT 23 U/L (<34); CALCIUM LEVEL 9.6 MG/DL (8.5-10.1); CARBON DIOXIDE LEVEL 30 MMOL/L (20-31); CHLORIDE LEVEL 102 MMOL/L (98-107); CHOLESTEROL LEVEL 183 MG/DL (<200); CHOLESTEROL RISK RATIO 3.78 (<5); CREATININE FOR GFR 0.93 MG/DL (0.70-1.30); GLOMERULAR FILTRATION RATE > 90.0 (>56); LDL CHOLESTEROL 110.7 MG/DL (<100); NON-HDL-C 134.7 MG/DL; POTASSIUM SERUM 4.1 MMOL/L (3.5-5.1); SODIUM LEVEL 142 MMOL/L (136-145); TRIGLYCERIDES LEVEL 120 MG/DL (<150)
== END ==
LOC: M WUC 08:10
PROVIDERS: ATTEND Nurse Practitioner Family
DX: E78.5 Hyperlipidemia, unspecified (principal); R73.9 Hyperglycemia, unspecified

== ENCOUNTER → 2025-10-16 | Outpatient (CLI) | payer OTHER ==
[~2025-10-16] MED LIST changes: -FISH10005 PO; +FISH1CAP38 PO; +RANO500T2 PO; +ROSU10TA90 PO; +VALS1TAB66 PO
[2025-10-16 18:34] LABS: BASO # 0.0 10^3/uL (0.0-0.2); BASO % 0.7 % (0.0-1.0); EOS # 0.1 10^3/uL (0.0-0.5); EOS % 2.7 % (0.0-3.0); LYMPH # 1.9 10^3/uL (1.5-5.0); LYMPH % 46.5 % (24.0-44.0); MONO # 0.4 10^3/uL (0.0-0.8); MONO % 8.5 % (2.0-8.0); NEUTROPHILS # 1.7 10^3/uL (1.5-8.5); NEUTROPHILS % 41.4 % (36.0-66.0); PLATELET COUNT, AUTOMATED 179 10^3/uL (150-450)
[2025-10-16 18:53] LABS: CPK CREATINE PHOSPHOKINASE 153.0 U/L (46-171)
[2025-10-16 18:54] LABS: ALT/SGPT 31.0 U/L (7.0-40); AST/SGOT 22.0 U/L (<34); CALCIUM LEVEL 9.4 MG/DL (8.5-10.1); CARBON DIOXIDE LEVEL 27.0 MMOL/L (20-31); CHLORIDE LEVEL 103.0 MMOL/L (98-107); CHOLESTEROL LEVEL 187.0 MG/DL (<200); CHOLESTEROL RISK RATIO 3.33 (<5); CREATININE FOR GFR 1.01 MG/DL (0.70-1.30); GLOMERULAR FILTRATION RATE 86.7 (>56); LDL CHOLESTEROL 115.6 MG/DL (<100); NON-HDL-C 131.0 MG/DL; POTASSIUM SERUM 4.4 MMOL/L (3.5-5.1); SODIUM LEVEL 140.0 MMOL/L (136-145); TRIGLYCERIDES LEVEL 77.0 MG/DL (<150)
[2025-10-16 19:11] LABS: ESTIMATED AVERAGE GLUCOSE 128.0 MG/DL (60-110)
[2025-10-16 20:04] LABS: CREATININE, URINE 199.5 MG/DL; MALB URINE SIEMENS 5.0 MG/L; MAU/CREAT RATIO 2.5 MCG/MG (0.0-30.0)
== END ==
LOC: M LAB 17:53
PROVIDERS: ATTEND Nurse Practitioner Family
DX: E11.9 Type 2 diabetes mellitus without complications (principal)